=== PATIENT | female | born 1935 | race Caucasian/White ===

== ENCOUNTER 2018-05-21 15:19 | Inpatient (IN) | payer MEDICARE, BC ==
[~2018-05-21] VITALS: Ht 154.9 cm; Wt 88.5 kg
--- NOTE | 2018-05-21 15:31 | NUR ---
BIB DAUGHTER FROM URGENT CARE, C/O ABD PAIN, LAST BM TODAY, DISTENDED, -DIARRHEA. "MY STOMACH IS SO TIGHT THAT I CAN'T BREATH.", TO ER BED 4, HOOKED TO MONITOR, CHANGED TO GOWN, AWAITING MD ZAVALA
--- NOTE | 2018-05-21 15:38 | NUR ---
DR ZALDIVAR AT BEDSIDE
[2018-05-21 16:38] LABS: BASOPHILS % (AUTO) 0.7 % (0.0-2.0); EOSINOPHILS % (AUTO) 0.8 % (0.0-6.0); HEMATOCRIT 22 % (33-45); LYMPHOCYTES # (AUTO) 0.9 /CMM (0.8-4.8); MEAN CORPUSCULAR HGB CONC 29 g/dl (31.0-36.0); MEAN CORPUSCULAR VOLUME 84 fL (82-100); MONOCYTES # (AUTO) 0.4 /CMM (0.1-1.30); MONOCYTES % (AUTO) 6.9 % (2.0-12.0); NEUTROPHILS # (AUTO) 4.8 /CMM (1.8-8.9); NEUTROPHILS % (AUTO) 77.6 % (43.0-81.0); PLATELET COUNT (AUTO) 224 /CMM (150-450); RED BLOOD CELL COUNT(AUTO) 2.63 MIL/uL (4.0-5.2); WHITE BLOOD COUNT (AUTO) 6.2 K/uL (4.3-11.0)
[2018-05-21 16:46] LABS: HEMOGLOBIN 6.5 g/dL (11.5-14.8)
[2018-05-21 16:51] LABS: CALCIUM, SERUM 9.9 mg/dL (8.5-10.1); CARBON DIOXIDE 23 mmol/L (21-32); CHLORIDE 111 mmol/L (98-107); CREATININE 1.4 mg/dL (0.6-1.3); GLUCOSE 102 mg/dL (74-106); POTASSIUM 4.6 mmol/L (3.5-5.1); SODIUM SERUM 143 mmol/L (136-145); UREA NITROGEN, BLOOD 24 mg/dL (7-18)
--- NOTE | 2018-05-21 16:51 | NUR ---
BACL FROM CT ABDOMEN
[2018-05-21 16:57] LABS: ALANINE AMINOTRANSFERASE 17 U/L (12-78); ALBUMIN 3.2 g/dL (3.4-5.0); ALKALINE PHOSPHATASE 70 U/L (46-116); ASPARTATE AMINOTRANSFERASE 15 U/L (15-37); BILIRUBIN,DIRECT 0.1 mg/dL (0.0-0.2); BILIRUBIN,TOTAL 0.6 mg/dL (0.2-1.0); LIPASE 496 U/L (73-393)
[2018-05-21] MEDS ORDERED: FUROSEMIDE 40 MG/4 ML VIAL IV ONE (17:30)
[2018-05-21] MEDS ORDERED: FUROSEMIDE 40 MG/4 ML VIAL ONE (17:38)
[2018-05-21 17:39] LABS: APPEARANCE,URINE Slightly Cloudy (CLEAR); BILIRUBIN,URINE Negative (NEGATIVE); BLOOD, URINE Trace-lysed Ery/uL (NEGATIVE); COLOR,URINE Yellow (YELLOW); KETONES,URINE Negative (NEGATIVE); LEUKOCYTE ESTERASE ,URINE Negative (NEGATIVE); NITRITE, URINE Negative (NEGATIVE); PH,URINE 5.5 (5.0-8.0); PROTEIN,URINE >=300 mg/dl (NEGATIVE); UGLUCOSE Negative (NEGATIVE); UROBILINOGEN,URINE 0.2 EU/dL (0.2)
--- NOTE | 2018-05-21 17:59 | NUR ---
PAGED EPIC FOR PANEL
--- NOTE | 2018-05-21 18:00 | NUR ---
SPOKE TO NURSE CAR SALES REPRESENTATIVE FOR MIDLINE INSERTION
[2018-05-21 18:10] LABS: BACTERIA,URINE Few /HPF (None Seen); RBC,URINE 0-2 /HPF (0-2); WBC,URINE 0-2 /HPF (0-3)
[2018-05-21 18:11] LABS: SQUAMOUS EPITHELIAL CELL,UR Few /HPF (None Seen); URINE AMORPHOUS URATE Moderate /HPF (None Seen)
[2018-05-21 18:19] LABS: BAND % (MANUAL) 2 % (0.0-5.0); LYMPHOCYTES % (MANUAL) 13 % (16-48); MONOCYTES % (MANUAL) 4 % (0-11.0); NEUTROPHILS % (MANUAL) 81 (42-76)
--- NOTE | 2018-05-21 18:35 | NUR ---
PT IS GOING TO 115-2, LUISA PEREYRA IS THE NURSE.
--- NOTE | 2018-05-21 18:55 | NUR ---
PT SIGNED CONSENT FOR BLOOD TRANSFUSION.
[2018-05-21] MEDS ORDERED: HYDROCODONE/APAP 5/325MG 1 EACH TABLET PO PRN (19:00)
[2018-05-21] MEDS ORDERED: ACETAMINOPHEN 325 MG TABLET PO PRN (19:00)
[2018-05-21] MEDS ORDERED: MAG HYDROX/AL HYDROX/SIMETH 30 ML UDC PO PRN (19:00)
[2018-05-21] MEDS ORDERED: Z GUARD REMEDY 2 OZ OINT TP PRN (19:00)
[2018-05-21] MEDS ORDERED: ONDANSETRON HCL/PF 4 MG/2 ML VIAL IVP PRN (19:00)
[2018-05-21] MEDS ORDERED: MAGNESIUM HYDROXIDE 30 ML UDC PO PRN (19:00)
--- NOTE | 2018-05-21 19:36 | NUR ---
REPORT GIVEN TO ALEJANDRO MORAN OF TELE UNIT
--- NOTE | 2018-05-21 19:38 | NUR ---
REPORT GIVEN TO BELEN MORAN FOR TEA
--- NOTE | 2018-05-21 19:50 | NUR ---
JEREMIAS MID LINE RN, IS AT THE BEDSIDE FOR MIDLINE INSERTION.
--- NOTE | 2018-05-21 20:10 | NUR ---
MIDLINE RN FINISHED. LUE 18G MIDLINE INSERTED.
[2018-05-21 22:00] VITALS: BP 140/72
--- NOTE | 2018-05-21 22:00 | NUR ---
RN NOTES RECEIVED PATIENT ON Martita LOVELL/Martita/BERTHA FAMILY MEMBER AT THE BEDSIDE. PATIENT PLACED ON MOLD SANDER WITH HR OS 67. PATIENT IV LINE ON RIGHT FOREARM G22 IS PATIENT AND INTACT, LEFT UPPER ARM MIDLINE IS ALSO PATIENT AND INTACT. RECEIVED PATIENT WITH BLOOD TRANSFUSION STARTED ALREADY FROM ER. VITAL SIGNS ARE TAKEN , SKIN ASSESSMENT IS DONE. ALL SAFETY MEASURES ARE IMPLEMENTED, BED IN LOW, LOCKED POSITION, CALL LIGHT IN REACH. WILL CONTINUE TO MONITOR PATIENT CLOSELY.
[2018-05-21 22:15] VITALS: BP 140/62
[2018-05-21 22:45] VITALS: BP 142/74
[2018-05-21 23:15] VITALS: BP 160/88
[2018-05-22] VITALS: BP 148/62
--- NOTE | 2018-05-22 | NUR ---
RN NOTES BLOOD TRANSFUSION IS DONE WITHOUT ANY ALLERGIC REACTIONS . NO ACUTE DISTRESS , NO HIGH TEMPERATURE, RR ARE WNL. WILL CONTINUE TO MONITOR PATIENT CLOSELY.
[2018-05-22 04:00] VITALS: BP 118/75
--- NOTE | 2018-05-22 07:30 | NUR ---
RN NOTES RECEIVED PATIENT IN BED WITH BREATHING NORMAL, EVEN AND UNLABORED. NO SOB NOTED. NO ACUTE DISTRESS NOTED. ON 4L O2 VIA NC, TOLERATED WELL. TELE MONITOR REVEALS SR, HR=60. IV RFA 22G IS PATENT AND INTACT, TOBIN MIDLINE IS PATENT AND INTACT. KEPT CLEAN,DRY AND COMFORTABLE. ALL NEEDS ATTENDED. SAFETY MEASURE OBSERVED. CALL LIGHT WITH IN REACH. WILL CONT TO MONITOR.
[2018-05-22 08:00] VITALS: BP 128/52
[2018-05-22 08:37] LABS: CALCIUM, SERUM 9.9 mg/dL (8.5-10.1); CARBON DIOXIDE 22 mmol/L (21-32); CHLORIDE 107 mmol/L (98-107); CREATININE 1.4 mg/dL (0.6-1.3); GLUCOSE 88 mg/dL (74-106); MAGNESIUM 2.1 mg/dL (1.8-2.4); PHOSPHORUS 3.4 mg/dL (2.5-4.9); SODIUM SERUM 141 mmol/L (136-145); UREA NITROGEN, BLOOD 22 mg/dL (7-18)
[2018-05-22] MEDS ORDERED: FUROSEMIDE 40 MG/4 ML VIAL IV SCH (09:00)
[2018-05-22 09:03] LABS: CHOLESTEROL 114 mg/dL (<200); HDL CHOLESTEROL 47 mg/dL (40-60); LDL 52 mg/dL (0-99); THYROID STIMULATING HORMONE 3.977 uIU/mL (0.358-3.74); TRIGLYCERIDES 147 mg/dL (30-150)
[2018-05-22] MEDS: FUROSEMIDE 40 MG/4 ML VIAL IV SCH ×2 (09:36→13:52)
[2018-05-22] MEDS ORDERED: DOCUSATE SODIUM 100 MG CAPSULE PO SCH (10:30)
[2018-05-22 10:34] LABS: BASOPHILS # (AUTO) 0.1 /CMM (0.0-0.2); BASOPHILS % (AUTO) 0.9 % (0.0-2.0); EOSINOPHILS % (AUTO) 1.8 % (0.0-6.0); HEMATOCRIT 27 % (33-45); LYMPHOCYTES # (AUTO) 0.8 /CMM (0.8-4.8); LYMPHOCYTES % (AUTO) 11.7 % (20.0-44.0); MEAN CORPUSCULAR HGB CONC 31 g/dl (31.0-36.0); MEAN CORPUSCULAR VOLUME 82 fL (82-100); MONOCYTES # (AUTO) 0.4 /CMM (0.1-1.30); MONOCYTES % (AUTO) 6.3 % (2.0-12.0); NEUTROPHILS # (AUTO) 5.2 /CMM (1.8-8.9); NEUTROPHILS % (AUTO) 79.3 % (43.0-81.0); PLATELET COUNT (AUTO) 250 /CMM (150-450); RED BLOOD CELL COUNT(AUTO) 3.36 MIL/uL (4.0-5.2); WHITE BLOOD COUNT (AUTO) 6.5 K/uL (4.3-11.0)
[2018-05-22 10:36] LABS: HEMOGLOBIN 8.5 g/dL (11.5-14.8)
[2018-05-22 10:41] LABS: CALCIUM, SERUM 10.2 mg/dL (8.5-10.1); CARBON DIOXIDE 25 mmol/L (21-32); CHLORIDE 106 mmol/L (98-107); CREATININE 1.5 mg/dL (0.6-1.3); GLUCOSE 128 mg/dL (74-106); POTASSIUM 3.8 mmol/L (3.5-5.1); SODIUM SERUM 143 mmol/L (136-145); UREA NITROGEN, BLOOD 22 mg/dL (7-18)
[2018-05-22 10:48] LABS: ALANINE AMINOTRANSFERASE 17 U/L (12-78); ALBUMIN 3.4 g/dL (3.4-5.0); ALKALINE PHOSPHATASE 77 U/L (46-116); ASPARTATE AMINOTRANSFERASE 16 U/L (15-37); BILIRUBIN,TOTAL 1.1 mg/dL (0.2-1.0); TOTAL PROTEIN, SERUM 7.5 g/dL (6.4-8.2)
[2018-05-22] MEDS ORDERED: ASPI-1152 PO (11:03)
[2018-05-22] MEDS ORDERED: AMLO5TAB9 PO (11:03)
[2018-05-22] MEDS ORDERED: DEXT15DR6 EACHEYE (11:03)
[2018-05-22] MEDS ORDERED: TRAZ-214 PO (11:04)
[2018-05-22] MEDS ORDERED: AZIT500T PO (11:04)
[2018-05-22] MEDS ORDERED: RIVA10TA PO (11:04)
[2018-05-22] MEDS ORDERED: POLY17PO29 PO (11:04)
[2018-05-22] MEDS ORDERED: MELA1TAB15 PO (11:04)
[2018-05-22] MEDS ORDERED: METO25TA6 PO (11:04)
[2018-05-22] MEDS ORDERED: CYAN100020 SL (11:04)
[2018-05-22] MEDS ORDERED: GABA-534 PO (11:04)
[2018-05-22] MEDS ORDERED: DONE10TA44 PO (11:04)
[2018-05-22] MEDS ORDERED: FURO20TA4 PO (11:04)
[2018-05-22] MEDS ORDERED: PROP15DR EACHEYE (11:04)
[2018-05-22] MEDS ORDERED: ROSU40TA PO (11:04)
[2018-05-22] MEDS ORDERED: CALC625T PO (11:04)
[2018-05-22] MEDS ORDERED: LEVO100T9 PO (11:04)
[2018-05-22] MEDS ORDERED: MEMA5TAB15 PO ×2 (11:04)
[2018-05-22] MEDS ORDERED: CHOL200026 PO (11:04)
[2018-05-22] MEDS ORDERED: [UNRECOGNIZED DRUG - OTHER] EACHEYE (11:04)
[2018-05-22] MEDS ORDERED: CITA20TA16 PO (11:04)
[2018-05-22 11:21] LABS: THYROID STIMULATING HORMONE 4.478 uIU/mL (0.358-3.74)
[2018-05-22 12:00] VITALS: BP 148/62
[2018-05-22 16:00] VITALS: BP 124/51
--- NOTE | 2018-05-22 19:09 | NUR ---
RN NOTES PATIENT ENDORSED TO NEXT SHIFT IN STABLE CONDITION FOR CONTINUITY OF CARE. WILL CONT TO MONITOR.
[2018-05-22 20:00] VITALS: BP 125/55
--- NOTE | 2018-05-22 20:00 | NUR ---
RN NOTES RECEIVED PATIENT IN BED, A/A/OX3 WITH EPISODES OF FORGETFULNESS .PATIENT IV LINE ON RIGHT FOREARM G22 IS PATIENT AND INTACT, LEFT UPPER ARM MIDLINE IS ALSO PATIENT AND INTACT. NO COMP. OF PAIN OR SOB. NO ACUTE DISTRESS NOTED AT THIS TIME. ALL SAFETY MEASURES ARE IMPLEMENTED, BED IN LOW, LOCKED POSITION, CALL LIGHT IN REACH. WILL CONTINUE TO MONITOR PATIENT CLOSELY.
[2018-05-22] MEDS: ZOLPIDEM TARTRATE 5 MG TABLET PO PRN (22:23)
[2018-05-23 04:00] VITALS: BP 143/52
[2018-05-23 07:23] LABS: BASOPHILS # (AUTO) 0.1 /CMM (0.0-0.2); EOSINOPHILS % (AUTO) 2.3 % (0.0-6.0); HEMATOCRIT 29 % (33-45); LYMPHOCYTES % (AUTO) 16.7 % (20.0-44.0); MEAN CORPUSCULAR HGB CONC 31 g/dl (31.0-36.0); MEAN CORPUSCULAR VOLUME 82 fL (82-100); MONOCYTES # (AUTO) 0.5 /CMM (0.1-1.30); MONOCYTES % (AUTO) 8.8 % (2.0-12.0); NEUTROPHILS # (AUTO) 4.4 /CMM (1.8-8.9); NEUTROPHILS % (AUTO) 71.2 % (43.0-81.0); PLATELET COUNT (AUTO) 219 /CMM (150-450); RED BLOOD CELL COUNT(AUTO) 3.55 MIL/uL (4.0-5.2); WHITE BLOOD COUNT (AUTO) 6.2 K/uL (4.3-11.0)
[2018-05-23 07:37] LABS: ALANINE AMINOTRANSFERASE 18 U/L (12-78); ALBUMIN 3.3 g/dL (3.4-5.0); ALKALINE PHOSPHATASE 74 U/L (46-116); ASPARTATE AMINOTRANSFERASE 31 U/L (15-37); BILIRUBIN,TOTAL 0.8 mg/dL (0.2-1.0); CALCIUM, SERUM 10.1 mg/dL (8.5-10.1); CARBON DIOXIDE 25 mmol/L (21-32); CHLORIDE 106 mmol/L (98-107); CREATININE 1.4 mg/dL (0.6-1.3); GLUCOSE 94 mg/dL (74-106); MAGNESIUM 2.3 mg/dL (1.8-2.4); PHOSPHORUS 3.8 mg/dL (2.5-4.9); POTASSIUM 3.8 mmol/L (3.5-5.1); SODIUM SERUM 143 mmol/L (136-145); TOTAL PROTEIN, SERUM 7.4 g/dL (6.4-8.2); UREA NITROGEN, BLOOD 24 mg/dL (7-18)
[2018-05-23 07:41] LABS: CREATINE KINASE, TOTAL 179 U/L (26-192)
[2018-05-23 08:00] VITALS: BP 140/52
--- NOTE | 2018-05-23 09:20 | NUR ---
RN AM SHIFT NOTE RECEIVED PATIENT RESPONSIVE TO TOUCH, NO VERBAL RESPONSE, VITALS WNL, NO DISTRESS A THIS TIME, IV TOBIN PATENT AND INTACT, G TUBE PATENT AND FLUSHING WELL, BED IN LOW POSITION WILL CONTINUE TO MONTITOR
[2018-05-23] MEDS: POTASSIUM CHLORIDE 20 MEQ TAB.PRT.SR PO SCH ×3 (10:10→12:07)
[2018-05-23] MEDS: FUROSEMIDE 40 MG/4 ML VIAL IV SCH ×3 (10:10→18:00)
[2018-05-23 12:00] VITALS: BP 134/64
[2018-05-23] MEDS: CITALOPRAM HYDROBROMIDE 20 MG TABLET PO SCH (12:07)
[2018-05-23] MEDS: MEMANTINE HCL 5 MG TABLET PO SCH (12:07)
[2018-05-23] MEDS: LEVOTHYROXINE SODIUM 100 MCG TABLET PO SCH (12:07)
[2018-05-23] MEDS: METOPROLOL TARTRATE 25 MG TABLET PO SCH ×2 (12:22→17:33)
[2018-05-23] MEDS: AMLODIPINE BESYLATE 5 MG TABLET PO SCH ×2 (12:24→21:24)
[2018-05-23] MEDS ORDERED: SOD FERRIC GLUC 125 MG in IV NS 0.9% 100 ML IV SCH (14:00)
[2018-05-23 16:00] VITALS: BP 138/54
[2018-05-23] MEDS ORDERED: MEMANTINE HCL 5 MG TABLET PO SCH (18:00)
[2018-05-23] MEDS ORDERED: GABAPENTIN 300 MG CAPSULE PO SCH (18:00)
--- NOTE | 2018-05-23 18:52 | NUR ---
RN CLOSING NOTE PATIENT IN BED, CONFUSED AT TIMES, LEFT UPPER MIDLINE PRESENT PATENT AND INTACT, BED IN LOW POSITION, OXYGEN ON VIA NASAL CANNULA TOLERATING WELL. NO REPORTS OF PAIN, FAMILY AT BEDSIDE IN THE AM AND AFTERNOON. CONTINUE TO MONITOR.
[2018-05-23 20:00] VITALS: BP 118/62
[2018-05-23] MEDS: ZOLPIDEM TARTRATE 5 MG TABLET PO PRN (21:38)
[2018-05-24 04:00] VITALS: BP 129/39
--- NOTE | 2018-05-24 07:00 | NUR ---
MS RN NOTES RECEIVED PT IN BED, ASLEEP. AROUSABLE. ON 4L NC. O2 SAT 100%. PT IS NOT IN DISTRESS. HOB ELEVATED 30 DEG. MIDLINE PATENT. NO S/SX OF INFECTION. BED IN LOCKED/LOWEST POSITION. CALL LIGHT IN REACH. WILL CONT TO MONITOR.
[2018-05-24 07:03] LABS: BASOPHILS # (AUTO) 0.1 /CMM (0.0-0.2); BASOPHILS % (AUTO) 0.9 % (0.0-2.0); EOSINOPHILS % (AUTO) 1.7 % (0.0-6.0); HEMATOCRIT 33 % (33-45); LYMPHOCYTES # (AUTO) 1.6 /CMM (0.8-4.8); LYMPHOCYTES % (AUTO) 20.1 % (20.0-44.0); MEAN CORPUSCULAR HGB CONC 30 g/dl (31.0-36.0); MEAN CORPUSCULAR VOLUME 83 fL (82-100); MONOCYTES # (AUTO) 0.8 /CMM (0.1-1.30); MONOCYTES % (AUTO) 10.6 % (2.0-12.0); NEUTROPHILS # (AUTO) 5.1 /CMM (1.8-8.9); NEUTROPHILS % (AUTO) 66.7 % (43.0-81.0); PLATELET COUNT (AUTO) 235 /CMM (150-450); RED BLOOD CELL COUNT(AUTO) 3.96 MIL/uL (4.0-5.2); WHITE BLOOD COUNT (AUTO) 7.7 K/uL (4.3-11.0)
[2018-05-24 08:00] VITALS: BP 125/67
[2018-05-24] MEDS: LEVOTHYROXINE SODIUM 100 MCG TABLET PO SCH (08:51)
[2018-05-24] MEDS: CITALOPRAM HYDROBROMIDE 20 MG TABLET PO SCH (08:51)
[2018-05-24] MEDS: METOPROLOL TARTRATE 25 MG TABLET PO SCH (08:52)
[2018-05-24] MEDS: MEMANTINE HCL 5 MG TABLET PO SCH (08:52)
[2018-05-24 09:59] LABS: ALANINE AMINOTRANSFERASE 21 U/L (12-78); ALBUMIN 3.4 g/dL (3.4-5.0); ALKALINE PHOSPHATASE 75 U/L (46-116); ASPARTATE AMINOTRANSFERASE 36 U/L (15-37); BILIRUBIN,TOTAL 0.6 mg/dL (0.2-1.0); CALCIUM, SERUM 10.2 mg/dL (8.5-10.1); CARBON DIOXIDE 24 mmol/L (21-32); CHLORIDE 104 mmol/L (98-107); CREATININE 2.3 mg/dL (0.6-1.3); GLUCOSE 85 mg/dL (74-106); MAGNESIUM 2.4 mg/dL (1.8-2.4); PHOSPHORUS 5.2 mg/dL (2.5-4.9); POTASSIUM 4.7 mmol/L (3.5-5.1); SODIUM SERUM 141 mmol/L (136-145); TOTAL PROTEIN, SERUM 7.7 g/dL (6.4-8.2); UREA NITROGEN, BLOOD 40 mg/dL (7-18)
--- NOTE | 2018-05-24 10:45 | NUR ---
MS RN NOTES PER BALJIT GARCIA TO TITRATE O2 DOWN TO SEE IF PT TOLERATES. PT CURRENTLY ON 2L NC O2 94%. WILL CONT TO MONITOR.
[2018-05-24] MEDS ORDERED: FUROSEMIDE 40 MG TABLET PO SCH (11:00)
[2018-05-24] MEDS ORDERED: FERR325T23 PO (11:07)
[2018-05-24] MEDS ORDERED: FURO-144 PO (11:07)
[2018-05-24 11:13] LABS: *SPE A/G RATIO 0.8 (0.7-1.7); *SPE ALBUMIN 3.3 g/dL (2.9-4.4); *SPE ALPHA-1-GLOBULIN 0.3 g/dL (0.0-0.4); *SPE ALPHA-2-GLOBULIN 1.3 g/dL (0.4-1.0); *SPE BETA GLOBULIN 1.2 g/dL (0.7-1.3); *SPE GLOBULIN, TOTAL 3.9 g/dL (2.2-3.9); *SPE M-SPIKE Not Observed g/dL (Not Observed); *SPEGAMMA GLOBULIN 1.1 g/dL (0.4-1.8)
[2018-05-24] MEDS ORDERED: PNEUMOCOCCAL 23-VAL P-SAC VAC 0.5 ML VIAL SQ ONE (11:30)
[2018-05-24 12:00] VITALS: BP 125/67
--- NOTE | 2018-05-24 12:12 | NUR ---
MS RN NOTES DISCHARGE INSTRUCTIONS GIVEN TO PT/ MIDLINE REMOVED/ PRESCRIPTION GIVEN. PT'S SKIN INTACT/NO WOUND PICS TAKEN. PNEUMO VACCINE ADMINISTERED. BEING DRIVEN HOME BY [id number].
[2018-05-24 13:09] LABS: PTH, INTACT 128 pg/mL (15-65)
== END 2018-05-24 12:30 | disposition home or self-care (01) | DRG 291 ==
LOC: ER 15:24 → TELE1 19:07 → MEDSG1 05-22 08:36
PROVIDERS: ADMIT Student in an Organized Health Care Education/Training Program; ATTEND Student in an Organized Health Care Education/Training Program
PROC: 05H633Z Insertion of Infusion Device into Left Subclavian Vein, Percutaneous Approach (ICD-10-PCS; principal; 2018-05-21)
PROC: B547ZZA Ultrasonography of Left Subclavian Vein, Guidance (ICD-10-PCS; 2018-05-21)
PROC: 30233N1 Transfusion of Nonautologous Red Blood Cells into Peripheral Vein, Percutaneous Approach (ICD-10-PCS; 2018-05-21)
DX: I13.0 Hypertensive heart and chronic kidney disease with heart failure and stage 1 through stage 4 chronic kidney disease, or unspecified chronic kidney disease (principal); N17.0 Acute kidney failure with tubular necrosis; I50.33 Acute on chronic diastolic (congestive) heart failure; E44.1 Mild protein-calorie malnutrition; I11.0 Hypertensive heart disease with heart failure; F03.90 Unspecified dementia, unspecified severity, without behavioral disturbance, psychotic disturbance, mood disturbance, and anxiety; I27.20 Pulmonary hypertension, unspecified; N18.9 Chronic kidney disease, unspecified; Z95.1 Presence of aortocoronary bypass graft; I25.10 Atherosclerotic heart disease of native coronary artery without angina pectoris; Z88.0 Allergy status to penicillin; G47.00 Insomnia, unspecified; Z95.3 Presence of xenogenic heart valve; K59.00 Constipation, unspecified; E66.01 Morbid (severe) obesity due to excess calories; Z68.36 Body mass index [BMI] 36.0-36.9, adult; G47.33 Obstructive sleep apnea (adult) (pediatric); I34.0 Nonrheumatic mitral (valve) insufficiency; D50.9 Iron deficiency anemia, unspecified; R00.1 Bradycardia, unspecified; Z79.899 Other long term (current) drug therapy
CPT/HCPCS: 36415; 36569; 71045-TC; 76770-TC; 80048-TC; 80053-TC; 80061-TC; 80076-TC; 81000-TC; 82550-TC; 82728-TC; 83540-TC; 83690-TC; 83735-TC; 83880; 83970; 84100-TC; 84155; 84165; 84439-TC; 84443-TC; 84484-TC; 85025-TC; 85730-TC; 86850-TC; 86921-TC; 87081-TC; 90732; 93307-TC; 94799-TC; G0378; J1940; J2916; J7030; J7040; P9016-BL

== ENCOUNTER 2019-06-06 10:00 | Outpatient (CLI) | payer MEDICARE, BC ==
[~2019-06-06 10:00] MED LIST: AMLO5TAB9 PO; ASPI-1152 PO; CALC625T PO; CHOL200026 PO; CITA20TA16 PO; CYAN100020 SL; DEXT15DR6 EACHEYE; DONE10TA44 PO; FERR325T23 PO; FURO-144 PO; GABA-534 PO; LEVO100T9 PO; MELA1TAB15 PO; MEMA5TAB42 PO; METO25TA6 PO; POLY17PO29 PO; PROP15DR EACHEYE; ROSU40TA PO; TRAZ-257 PO; [UNRECOGNIZED DRUG - OTHER] EACHEYE
== END 2019-06-06 23:59 | disposition home or self-care (01) ==
LOC: WOU 10:00
PROVIDERS: ATTEND Podiatrist Foot & Ankle Surgery
DX: L03.032 Cellulitis of left toe (principal); E11.42 Type 2 diabetes mellitus with diabetic polyneuropathy; M79.672 Pain in left foot; Z87.891 Personal history of nicotine dependence; I25.10 Atherosclerotic heart disease of native coronary artery without angina pectoris; Z95.1 Presence of aortocoronary bypass graft; Z96.649 Presence of unspecified artificial hip joint
CPT/HCPCS: G0463

== ENCOUNTER 2019-07-04 11:05 | Outpatient (CLI) | payer MEDICARE, BC | END 2019-07-04 23:59 | disposition home or self-care (01) | LOC: WOU 11:05 | PROVIDERS: ATTEND Podiatrist Foot & Ankle Surgery | DX: L03.032 Cellulitis of left toe (principal); L90.5 Scar conditions and fibrosis of skin; E11.42 Type 2 diabetes mellitus with diabetic polyneuropathy; E11.51 Type 2 diabetes mellitus with diabetic peripheral angiopathy without gangrene; F17.200 Nicotine dependence, unspecified, uncomplicated | CPT/HCPCS: G0463 ==

== ENCOUNTER 2019-07-30 13:20 | Outpatient (CLI) | payer MEDICARE, BC | END 2019-07-30 23:59 | disposition home or self-care (01) | LOC: WOU 13:20 | PROVIDERS: ATTEND Podiatrist Foot & Ankle Surgery | DX: B35.1 Tinea unguium (principal); L60.2 Onychogryphosis; E11.42 Type 2 diabetes mellitus with diabetic polyneuropathy; E11.51 Type 2 diabetes mellitus with diabetic peripheral angiopathy without gangrene; M79.672 Pain in left foot; M79.671 Pain in right foot; F17.200 Nicotine dependence, unspecified, uncomplicated; Z91.19 Patient's noncompliance with other medical treatment and regimen | CPT/HCPCS: G0463 ==

== ENCOUNTER 2019-09-26 13:25 | Outpatient (CLI) | payer MEDICARE, BC | END 2019-09-26 23:59 | disposition home or self-care (01) | LOC: WOU 13:25 | PROVIDERS: ATTEND Podiatrist Foot & Ankle Surgery | DX: E11.42 Type 2 diabetes mellitus with diabetic polyneuropathy (principal); I73.9 Peripheral vascular disease, unspecified; M79.672 Pain in left foot; M79.675 Pain in left toe(s); M79.674 Pain in right toe(s); Z79.01 Long term (current) use of anticoagulants; Z87.891 Personal history of nicotine dependence | CPT/HCPCS: G0463 ==

== ENCOUNTER 2019-12-19 14:15 | Outpatient (CLI) | payer MEDICARE, BC ==
[~2019-12-19 14:15] MED LIST changes: -ASPI-1152 PO; +ASPI-1420 PO
== END 2019-12-19 23:59 | disposition home or self-care (01) ==
LOC: WOU 14:15
PROVIDERS: ATTEND Podiatrist Foot & Ankle Surgery
DX: Z09 Encounter for follow-up examination after completed treatment for conditions other than malignant neoplasm (principal); Z86.31 Personal history of diabetic foot ulcer; E11.42 Type 2 diabetes mellitus with diabetic polyneuropathy; E11.51 Type 2 diabetes mellitus with diabetic peripheral angiopathy without gangrene; M79.675 Pain in left toe(s); M79.674 Pain in right toe(s); B35.1 Tinea unguium; F17.200 Nicotine dependence, unspecified, uncomplicated
CPT/HCPCS: G0463

== ENCOUNTER 2020-03-29 18:00 | Emergency (ER) | payer MEDICARE, BC ==
[~2020-03-29] VITALS: Ht 154.9 cm; Wt 89.8 kg
[~2020-03-29 18:00] MED LIST changes: +AMLO-212 PO; -AMLO5TAB9 PO
[2020-03-29] MEDS ORDERED: ZOLP5TAB8 PO (18:28)
[2020-03-29] MEDS ORDERED: ACID1TAB12 PO (18:28)
[2020-03-29] MEDS ORDERED: MAG30ORA PO (18:28)
[2020-03-29] MEDS ORDERED: HYDR-4077 PO (18:28)
[2020-03-29] MEDS ORDERED: PANT40TA2 PO (18:28)
[2020-03-29] MEDS ORDERED: LOSA50TA39 PO (18:28)
[2020-03-29] MEDS ORDERED: TERA2CAP4 PO (18:28)
[2020-03-29] MEDS ORDERED: DOCU-141 PO (18:28)
[2020-03-29] MEDS ORDERED: OXYM-12 (18:28)
[2020-03-29] MEDS ORDERED: CYAN100096 PO (18:28)
[2020-03-29] MEDS ORDERED: UMEC1BLS IH (18:28)
[2020-03-29] MEDS ORDERED: ONDA4TAB5 PO (18:28)
[2020-03-29] MEDS ORDERED: ALPR0.25 PO (18:28)
[2020-03-29] MEDS ORDERED: NITR0.4T48 SL (18:28)
[2020-03-29] MEDS ORDERED: ISOS30TA6 PO (18:28)
[2020-03-29] MEDS ORDERED: IPRA3AMP23 IH (18:28)
[2020-03-29] MEDS ORDERED: DIVA250T47 PO (18:28)
[2020-03-29] MEDS ORDERED: SENN-261 PO (18:28)
[2020-03-29] MEDS ORDERED: CARV3.122 PO (18:28)
--- NOTE | 2020-03-29 19:05 | NUR ---
US AT BEDSIDE.
[2020-03-29 19:47] LABS: BASOPHILS # (AUTO) 0.1 /CMM (0.0-0.2); BASOPHILS % (AUTO) 0.7 % (0.0-2.0); EOSINOPHILS % (AUTO) 0.9 % (0.0-6.0); HEMATOCRIT 45 % (33-45); HEMOGLOBIN 13.6 g/dL (11.5-14.8); LYMPHOCYTES % (AUTO) 24.5 % (20.0-44.0); MEAN CORPUSCULAR HGB CONC 31 g/dl (31.0-36.0); MEAN CORPUSCULAR VOLUME 99 fL (82-100); MONOCYTES # (AUTO) 0.7 /CMM (0.1-1.30); MONOCYTES % (AUTO) 8.2 % (2.0-12.0); NEUTROPHILS # (AUTO) 5.4 /CMM (1.8-8.9); NEUTROPHILS % (AUTO) 65.7 % (43.0-81.0); PLATELET COUNT (AUTO) 184 /CMM (150-450); WHITE BLOOD COUNT (AUTO) 8.2 K/uL (4.3-11.0)
--- NOTE | 2020-03-29 19:50 | NUR ---
PT BIBRA C/O EPIGASTRIC PAIN WHICH FEELS LIKE SHE IS GOING TO [facility]. RESP EVEN UNLABORED. PAIN IS NONRADIATING, INTERMITTENT, AND UNABLE TO IDENTIFY PRECIPITATING FACTORS. PT HAS HAD DIFFICULTY WITH BM SINCE DC FROM HOSPITAL. LAST COVID TESTED ON SUNDAY, NEGATIVE. SKIN WARM DRY BUT PT C/O COLD EXTREMITIES, CAP REFILL WNL.
[2020-03-29 19:58] LABS: CALCIUM, SERUM 11.6 mg/dL (8.5-10.1); CARBON DIOXIDE 18 mmol/L (21-32); CHLORIDE 106 mmol/L (98-107); CREATININE 1.4 mg/dL (0.6-1.3); GLUCOSE 103 mg/dL (74-106); POTASSIUM 4.4 mmol/L (3.5-5.1); SODIUM SERUM 140 mmol/L (136-145); UREA NITROGEN, BLOOD 26 mg/dL (7-18)
[2020-03-29 20:05] LABS: ALANINE AMINOTRANSFERASE 20 U/L (12-78); ALBUMIN 3.6 g/dL (3.4-5.0); ALKALINE PHOSPHATASE 115 U/L (46-116); ASPARTATE AMINOTRANSFERASE 21 U/L (15-37); BILIRUBIN,DIRECT 0.2 mg/dL (0.0-0.2); BILIRUBIN,TOTAL 0.4 mg/dL (0.2-1.0); LIPASE 254 U/L (73-393); TOTAL PROTEIN, SERUM 7.6 g/dL (6.4-8.2)
[2020-03-29 20:56] LABS: BILIRUBIN,URINE Negative (NEGATIVE); BLOOD, URINE Trace-lysed Ery/uL (NEGATIVE); COLOR,URINE YELLOW (YELLOW); LEUKOCYTE ESTERASE ,URINE Negative (NEGATIVE); NITRITE, URINE Negative (NEGATIVE); PROTEIN,URINE 100 mg/dl (NEGATIVE); UGLUCOSE Negative (NEGATIVE); UROBILINOGEN,URINE 0.2 EU/dL (0.2)
--- NOTE | 2020-03-29 20:59 | NUR ---
URINE OBTAINED BY IN AND OUT CATH DUE TO NO URINE PER DR ZALDIVAR
[2020-03-29] MEDS ORDERED: ONDANSETRON HCL/PF - ER 4 MG/2 ML VIAL IV ONE (21:00)
[2020-03-29] MEDS ORDERED: MORPHINE SULFATE INJ 2 MG/ML DISP.SYRIN IV ONE (21:00)
[2020-03-29] MEDS ORDERED: PANTOPRAZOLE 40 MG VIAL IV ONE (21:00)
[2020-03-29] MEDS ORDERED: PANTOPRAZOLE 40 MG VIAL ONE (21:20)
[2020-03-29] MEDS ORDERED: MORPHINE SULFATE INJ 2 MG/ML DISP.SYRIN ONE (21:20)
[2020-03-29] MEDS ORDERED: ONDANSETRON HCL/PF 4 MG/2 ML VIAL ONE (21:20)
[2020-03-29 21:49] LABS: BACTERIA,URINE Rare /HPF (None Seen); SQUAMOUS EPITHELIAL CELL,UR Few /HPF (None Seen); WBC,URINE NONE SEEN /HPF (0-3)
[2020-03-29 22:24] VITALS: BP 139/84
--- NOTE | 2020-03-29 22:25 | NUR ---
IV removed. Catheter intact and site benign. Pressure and 4x4 applied to site. No bleeding noted. AMBULATORY STEADY GAIT. Patient discharged to home in stable condition. Written and verbal after care instructions given. Patient verbalizes understanding of instruction. PT'S SON ABBE WILL PICK HER UP. PT ESCORTED TO WAITING ROOM.
== END 2020-03-29 22:28 | disposition home or self-care (01) ==
LOC: ER 18:03
DX: K44.9 Diaphragmatic hernia without obstruction or gangrene (principal); K59.00 Constipation, unspecified; G47.30 Sleep apnea, unspecified; G47.00 Insomnia, unspecified; F03.90 Unspecified dementia, unspecified severity, without behavioral disturbance, psychotic disturbance, mood disturbance, and anxiety; I25.10 Atherosclerotic heart disease of native coronary artery without angina pectoris; E78.5 Hyperlipidemia, unspecified; E03.9 Hypothyroidism, unspecified; I13.0 Hypertensive heart and chronic kidney disease with heart failure and stage 1 through stage 4 chronic kidney disease, or unspecified chronic kidney disease; E11.22 Type 2 diabetes mellitus with diabetic chronic kidney disease; N18.9 Chronic kidney disease, unspecified; Z95.5 Presence of coronary angioplasty implant and graft; Z95.1 Presence of aortocoronary bypass graft; Z98.890 Other specified postprocedural states; Z88.0 Allergy status to penicillin; Z88.8 Allergy status to other drugs, medicaments and biological substances; Z79.899 Other long term (current) drug therapy; Z79.82 Long term (current) use of aspirin
CPT/HCPCS: 36415; 71045; 74176; 76705; 80048; 80076; 81001; 83690; 84484; 85025; 93005; 96374; 96375; 99285; C9113; J2270; J2405 ×2

== ENCOUNTER 2022-03-25 20:36 | Emergency (ER) | payer MEDICARE, BC ==
[~2022-03-25] VITALS: Ht 154.9 cm; Wt 91.2 kg
[~2022-03-25 20:36] MED LIST changes: +ACID1TAB12 PO; +ALPR0.25 PO; -AMLO-212 PO; +CARV3.122 PO; -CITA20TA16 PO; -CYAN100020 SL; +CYAN100096 PO; -DEXT15DR6 EACHEYE; +DIVA250T47 PO; +DOCU-141 PO; -DONE10TA44 PO; -FERR325T23 PO; -FURO-144 PO; -GABA-534 PO; +HYDR-4077 PO; +IPRA3AMP23 IH; +ISOS30TA86 PO; +LOSA50TA39 PO; +MAG30ORA PO; -MELA1TAB15 PO; -MEMA5TAB42 PO; -METO25TA6 PO; +NITR0.4T48 SL; +ONDA4TAB5 PO; +OXYM-12; +PANT40TA2 PO; -POLY17PO29 PO; +SENN-261 PO; +TERA2CAP4 PO; -TRAZ-257 PO; +UMEC1BLS IH; +ZOLP5TAB8 PO; -[UNRECOGNIZED DRUG - OTHER] EACHEYE
[2022-03-25 21:16] VITALS: BP 175/96
--- NOTE | 2022-03-25 21:16 | NUR ---
PT BIBRA 102 [facility], C/O NO BM X 4 DAYS. PATIENT IS A/O X 3, RR EVEN AND UNLABORED, NO SOB NOTED. VSS. WILL CONTINUE TO MONITOR.
[2022-03-25] MEDS ORDERED: LACTULOSE 10 G/15 ML UDC (PYXIS) ONE (21:46)
[2022-03-25] MEDS ORDERED: KETOROLAC TROMETHAMINE 15 MG/ML VIAL ONE (21:46)
[2022-03-25] MEDS ORDERED: PANTOPRAZOLE 40 MG VIAL ONE (21:47)
[2022-03-25] MEDS ORDERED: MAG HYDROX/AL HYDROX/SIMETH 30 ML UDC ONE (21:47)
[2022-03-25] MEDS ORDERED: PANTOPRAZOLE 40 MG VIAL IV ONE (22:00)
[2022-03-25] MEDS ORDERED: KETOROLAC TROMETHAMINE INJ 30 MG/ML VIAL IV ONE (22:00)
[2022-03-25] MEDS ORDERED: MAG HYDROX/AL HYDROX/SIMETH 30 ML UDC PO ONE (22:00)
[2022-03-25] MEDS ORDERED: LACTULOSE 10 G/15 ML UDC (PYXIS) PO ONE (22:00)
--- NOTE | 2022-03-25 22:22 | NUR ---
IV LINE ESTABLISHED, RWRIST 24G
--- NOTE | 2022-03-25 23:58 | NUR ---
PT TAKEN TO CT SCAN VIA [facility]
[2022-03-26 00:02] LABS: CALCIUM, SERUM 10.6 mg/dL (8.5-10.1); CARBON DIOXIDE 26 mmol/L (21-32); CHLORIDE 106 mmol/L (98-107); GLUCOSE 154 mg/dL (74-106); POTASSIUM 4.7 mmol/L (3.5-5.1); SODIUM SERUM 142 mmol/L (136-145); UREA NITROGEN, BLOOD 36 mg/dL (7-18)
[2022-03-26 00:03] LABS: BASOPHILS % (AUTO) 0.4 % (0.0-2.0); EOSINOPHILS % (AUTO) 0.6 % (0.0-6.0); HEMATOCRIT 39 % (33-45); HEMOGLOBIN 11.9 g/dL (11.5-14.8); LYMPHOCYTES # (AUTO) 0.9 K/uL (0.8-4.8); LYMPHOCYTES % (AUTO) 8.8 % (20.0-44.0); MEAN CORPUSCULAR HGB CONC 31 g/dl (31.0-36.0); MEAN CORPUSCULAR VOLUME 91 fL (82-100); MONOCYTES # (AUTO) 0.5 K/uL (0.1-1.30); MONOCYTES % (AUTO) 4.3 % (2.0-12.0); NEUTROPHILS # (AUTO) 9.2 K/uL (1.8-8.9); NEUTROPHILS % (AUTO) 85.9 % (43.0-81.0); PLATELET COUNT (AUTO) 69 K/uL (150-450); RED BLOOD CELL COUNT(AUTO) 4.26 MIL/uL (4.0-5.2); WHITE BLOOD COUNT (AUTO) 10.7 K/uL (4.3-11.0)
--- NOTE | 2022-03-26 00:10 | NUR ---
[facility]
[2022-03-26 00:20] LABS: ALANINE AMINOTRANSFERASE 34 U/L (12-78); ALBUMIN 3.5 g/dL (3.4-5.0); ALKALINE PHOSPHATASE 124 U/L (46-116); ASPARTATE AMINOTRANSFERASE 58 U/L (15-37); BILIRUBIN,DIRECT 0.3 mg/dL (0.0-0.2); BILIRUBIN,TOTAL 0.5 mg/dL (0.2-1.0); LIPASE 143 U/L (73-393); TOTAL PROTEIN, SERUM 7.5 g/dL (6.4-8.2)
[2022-03-26 01:21] LABS: EOSINOPHILS % (MANUAL) 1 % (0-4); LYMPHOCYTES % (MANUAL) 11 % (16-48); MONOCYTES % (MANUAL) 7 % (0-11.0); NEUTROPHILS % (MANUAL) 81 (42-76)
[2022-03-26] MEDS ORDERED: DOCU240C PO (01:22)
--- NOTE | 2022-03-26 01:46 | NUR ---
CALLED [facility] TO SET UP TRANSPORTATION ETA IS [phone]
--- NOTE | 2022-03-26 03:09 | NUR ---
IV removed. Catheter intact and site benign. Pressure and 4x4 applied to site. No bleeding noted.
--- NOTE | 2022-03-26 03:09 | NUR ---
Patient discharged to home in stable condition. Written and verbal after care instructions given. Patient verbalizes understanding of instruction.
== END 2022-03-26 03:25 | disposition home or self-care (01) ==
LOC: ER 20:39
DX: R10.11 Right upper quadrant pain (principal); I10 Essential (primary) hypertension; E78.5 Hyperlipidemia, unspecified; Z88.0 Allergy status to penicillin; Z88.8 Allergy status to other drugs, medicaments and biological substances; Z79.899 Other long term (current) drug therapy
CPT/HCPCS: 99284; 74176; 96374; 96375; 85025; 80048; 83690; 80076; 85007; J7030; C9113; J1885; 36415

== ENCOUNTER 2022-09-14 21:15 | Inpatient (IN) | payer MEDICARE, BC ==
[~2022-09-14] VITALS: Ht 154.9 cm; Wt 85.3 kg
[~2022-09-14 21:15] MED LIST changes: +DOCU240C PO
--- NOTE | 2022-09-14 21:19 | NUR ---
ARACELY FROM [facility] FOR C/C OF N/V. PER STAFF. PT WAS BEING ASSISTED TO BED AND BECAME SUDDENLY WEAK, DIZZY AND PALE/DIAPHORETIC. -LOC. PT THEN BECAME SUDDENLY NAUSEOUS AND BECAME VOMITING NON BLOODY VOMITUS. PT STATES HER DIZZINESS HAS IMPROVED AT TRIAGE BUT STILL ENDORSES NAUSEA, DRY HEAVING AT TRIAGE. PT NORMOTENSIVE. ECG AFIB, UNKOWN IF NEW ONSET -BLOODTHINNER USE. AWAKE AND ALERT X3 RR EVEN AND UNLABORED V/S WNL
--- NOTE | 2022-09-14 21:20 | NUR ---
UPDATED MORGAN (DAUGHTER IN LAW) [phone]
--- NOTE | 2022-09-14 21:22 | NUR ---
ARACELY FROM [facility] FOR SUDDEN WEAKNESS/DIZZINESS WHILE ASSISTED TO BED, BECAME PALE AND DIAPHORETIC AND STARTED VOMITING. ONLY NAUSEOUS AT TRIAGE. PATIENT PLACED IN BED COMFORTABLY, VITALS CHECKED.
[2022-09-14] MEDS ORDERED: ONDANSETRON HCL/PF 4 MG/2 ML VIAL ONE (21:45)
[2022-09-14] MEDS ORDERED: ONDANSETRON HCL/PF - ER 4 MG/2 ML VIAL IV ONE (22:00)
--- NOTE | 2022-09-14 22:20 | NUR ---
22GA TO RIGHT FOREARM ESTABLISHED
--- NOTE | 2022-09-14 22:44 | NUR ---
IRRIGATION EQUIPMENT REMOVER AT BEDSIDE
--- NOTE | 2022-09-14 23:00 | NUR ---
PT UNABLE TO PROVIDE URINE SAMPLE AT THIS TIME. AWARE.
[2022-09-14 23:18] LABS: BASOPHILS # (AUTO) 0.1 K/uL (0.0-0.2); BASOPHILS % (AUTO) 0.5 % (0.0-2.0); EOSINOPHILS % (AUTO) 1.3 % (0.0-6.0); HEMATOCRIT 39 % (33-45); HEMOGLOBIN 11.9 g/dL (11.5-14.8); LYMPHOCYTES # (AUTO) 1.4 K/uL (0.8-4.8); LYMPHOCYTES % (AUTO) 12.9 % (20.0-44.0); MEAN CORPUSCULAR HGB CONC 31 g/dl (31.0-36.0); MEAN CORPUSCULAR VOLUME 85 fL (82-100); MONOCYTES # (AUTO) 0.6 K/uL (0.1-1.30); MONOCYTES % (AUTO) 5.8 % (2.0-12.0); NEUTROPHILS # (AUTO) 8.6 K/uL (1.8-8.9); NEUTROPHILS % (AUTO) 79.5 % (43.0-81.0); PLATELET COUNT (AUTO) 247 K/uL (150-450); RED BLOOD CELL COUNT(AUTO) 4.57 MIL/uL (4.0-5.2); WHITE BLOOD COUNT (AUTO) 10.9 K/uL (4.3-11.0)
--- NOTE | 2022-09-14 23:24 | NUR ---
SON/ABBE REYNOSO
[2022-09-14 23:41] LABS: ALANINE AMINOTRANSFERASE 23 U/L (12-78); ALBUMIN 3.4 g/dL (3.4-5.0); ALKALINE PHOSPHATASE 141 U/L (46-116); ASPARTATE AMINOTRANSFERASE 23 U/L (15-37); BILIRUBIN,DIRECT 0.1 mg/dL (0.0-0.2); BILIRUBIN,TOTAL 0.3 mg/dL (0.2-1.0); CALCIUM, SERUM 10.7 mg/dL (8.5-10.1); CARBON DIOXIDE 19 mmol/L (21-32); CHLORIDE 106 mmol/L (98-107); CREATININE 2.5 mg/dL (0.6-1.3); GLUCOSE 103 mg/dL (74-106); LIPASE 109 U/L (73-393); POTASSIUM 4.9 mmol/L (3.5-5.1); SODIUM SERUM 138 mmol/L (136-145); TOTAL PROTEIN, SERUM 7.6 g/dL (6.4-8.2); UREA NITROGEN, BLOOD 49 mg/dL (7-18)
--- NOTE | 2022-09-14 23:50 | NUR ---
PASTRY COOK AT BEDSIDE TO TRANSPORT PATIENT, PATIENT REFUSED
--- NOTE | 2022-09-14 23:51 | NUR ---
CROP GRAIN OR LIVESTOCK FARM MANAGER AT BEDSIDE, PATIENT REFUSED BLOOD DRAW
--- NOTE | 2022-09-14 23:53 | NUR ---
MD MADE AWARE OF PATIENT'S REFUSAL FOR CT AND BLOOD DRAW. MD AT BEDSIDE TO SPEAK WITH PATIENT.
--- NOTE | 2022-09-14 23:54 | NUR ---
SON/ABBE AT BEDSIDE
--- NOTE | 2022-09-15 00:16 | NUR ---
PT TRANSPORTED FOR CT AND XRAY ACCOMPANIED BY SULEMA AND TECH
--- NOTE | 2022-09-15 00:21 | NUR ---
MOVE SHEET SUBMITTEDD
--- NOTE | 2022-09-15 00:28 | NUR ---
PT BACK FROM CT
--- NOTE | 2022-09-15 00:40 | NUR ---
COVID & MRSA SWABS COLLECTED, SENT TO LAB
--- NOTE | 2022-09-15 01:00 | NUR ---
ROD MILL TENDER AT PT'S BEDSIDE
[2022-09-15] MEDS ORDERED: FUROSEMIDE 20 MG/2 ML VIAL IV ONE (01:30)
[2022-09-15] MEDS ORDERED: OLANZAPINE 10 MG VIAL IM ONE ×2 (01:30→01:38)
[2022-09-15] MEDS ORDERED: FUROSEMIDE 20 MG/2 ML VIAL ONE (01:38)
[2022-09-15] MEDS ORDERED: MAG HYDROX/AL HYDROX/SIMETH 30 ML UDC PO PRN ×2 (02:00)
[2022-09-15] MEDS ORDERED: MAGNESIUM HYDROXIDE 30 ML UDC PO PRN (02:00)
[2022-09-15] MEDS ORDERED: ZOLPIDEM TARTRATE 5 MG TABLET PO PRN ×2 (02:00)
[2022-09-15] MEDS ORDERED: ONDANSETRON HCL/PF 4 MG/2 ML VIAL IVP PRN (02:00)
[2022-09-15] MEDS ORDERED: ONDANSETRON HCL/PF - ER 4 MG/2 ML VIAL IV ONE (02:00)
[2022-09-15] MEDS ORDERED: ACETAMINOPHEN 325 MG TABLET PO PRN (02:00)
[2022-09-15] MEDS ORDERED: Z GUARD REMEDY 4 OZ OINT TP PRN (02:00)
--- NOTE | 2022-09-15 02:27 | NUR ---
NOTIFIED DR FABIAN GEN SURGEON VIA TEXT
[2022-09-15] MEDS ORDERED: HYDROMORPHONE INJ 2 MG/ML DISP.SYRIN IV PRN (02:30)
[2022-09-15] MEDS ORDERED: CEFEPIME 1 GM in IV D5W 50 ML IV ONE (02:30)
[2022-09-15] MEDS ORDERED: MORPHINE SULFATE INJ 2 MG/ML DISP.SYRIN IV ONE (02:30)
[2022-09-15] MEDS ORDERED: IV NS 0.9% 1,000 ML IV PRN (02:30)
[2022-09-15] MEDS ORDERED: VANCOMYCIN 1 GM in IV D5W 250 ML IV ONE (02:30)
--- NOTE | 2022-09-15 02:32 | NUR ---
NOTIFIED DR BARBY MCCARTHY VIA TEXT
[2022-09-15] MEDS ORDERED: CIPROFLOXACIN IV RTU 200 ML IV ONE (02:34)
[2022-09-15] MEDS: CIPROFLOXACIN IV RTU 400 MG in PREMIX 1 EA IV SCH ×2 (02:36→15:04)
--- NOTE | 2022-09-15 03:10 | NUR ---
PT GOING TO 104
--- NOTE | 2022-09-15 03:10 | NUR ---
REPORT GIVEN TO JAMAL MORAN FOR TEA
--- NOTE | 2022-09-15 03:20 | NUR ---
URINE COLLECTED, SENT TO LAB
--- NOTE | 2022-09-15 03:22 | NUR ---
SKIP LOADER AT BEDSIDE
[2022-09-15] MEDS ORDERED: CEFEPIME 1 GM VIAL ONE (03:27)
[2022-09-15] MEDS ORDERED: MORPHINE SULFATE INJ 4 MG/ML DISP.SYRIN ONE (03:27)
[2022-09-15] MEDS ORDERED: VANCOMYCIN 1 GM /D5W 250 ML PB IV ONE (03:28)
[2022-09-15 03:59] LABS: BILIRUBIN,URINE NEGATIVE (NEGATIVE); COLOR,URINE DARK YELLOW (YELLOW); LEUKOCYTE ESTERASE ,URINE 3+ (NEGATIVE); NITRITE, URINE NEGATIVE (NEGATIVE); PROTEIN,URINE TRACE mg/dl (NEGATIVE); UGLUCOSE NEGATIVE (NEGATIVE); UROBILINOGEN,URINE 0.2 EU/dL (0.2)
[2022-09-15 04:01] LABS: BACTERIA,URINE Rare /HPF (None Seen); SQUAMOUS EPITHELIAL CELL,UR Few /HPF (None Seen)
--- NOTE | 2022-09-15 04:10 | NUR ---
LATIC 2.4
--- NOTE | 2022-09-15 04:35 | NUR ---
ACID EXTRACTOR NOTE RECEIVED PT FROM ER, ARRIVED VIA [facility], PT ACCOMPANIED BY 2 ER PERSONNELS. PT ORIGINALLY FROM [facility]. PT IS AWAKE, ALERT, VERBALLY RESPONSIVE, ORIENTED TO SELF AND PLACE WITH PERIODS OF CONFUSION. PT ON 2LIT O2 VIA NC, WELL CURRY, NO ACUTE RESP DISTRESS, SLIGHT SOB ON EXERTION. VSS. PT DENIES CHEST PAIN, NO C/O PAIN AT THIS TIME. AFEBRILE. PIV ACCESS ON RFA #22G, PATENT, SECURED, DD CDI. SKIN ASSESSMENT DONE, SKIN INTACT, NOTED WITH DD ON RLE, PER PT, SHE HAD SURGERY 2 DAYS AGO D/T CARCINOMA, UNKNOWN WHAT SPECIFIC SURGERY, PT REFUSES TO REMOVE BANDAGE, UNABLE TO ASSESS. CALL LIGHT WITHIN EASY REACH, SAFETY PRECAUTION IMPLEMENTED, ORIENTED TO ROOM, CALL LIGHT, RETURN DEMONSTRATION DONE. WILL CONTINUE PLAN OF CARE.
[2022-09-15 04:59] VITALS: BP 108/60
[2022-09-15] MEDS ORDERED: POLYVINYL ALCOHOL 15 ML BOTTLE EACHEYE PRN (05:00)
[2022-09-15] MEDS ORDERED: METRONIDAZOLE 500MG/ NS 100ML 100 ML IV ONE (05:20)
[2022-09-15] MEDS: METRONIDAZOLE 500MG/ NS 100ML 500 MG in PREMIX 1 EA IV SCH ×3 (05:38→20:21)
[2022-09-15] MEDS ORDERED: Medication Not On Formulary EA (Ipratropium/Albuterol Sulfate (Duoneb 2.5-0.5 Mg/3 Ml So IH SCH (06:00)
--- NOTE | 2022-09-15 06:37 | NUR ---
RN NOTE ATTEMPTED TO CALL SULEMA MCADAMS FOR NM VERBAL CONSENT, NO ANSWER, LEFT A MESSAGE. AWAITING FOR CALL BACK. WILL COMMUNICATE TO AM SHIFT.
[2022-09-15 07:01] LABS: ALBUMIN 3.3 g/dL (3.4-5.0); BILIRUBIN,DIRECT 0.1 mg/dL (0.0-0.2); BILIRUBIN,TOTAL 0.3 mg/dL (0.2-1.0); TOTAL PROTEIN, SERUM 7.3 g/dL (6.4-8.2)
--- NOTE | 2022-09-15 07:09 | NUR ---
WOUND CARE CONSULT: PT PRESENTS WITH HEALED INCISION TO RT LOWER LEG (COBAN DRESSING WAS REMOVED) AND LEFT LOWER LEG ULCER (BANDAID WAS REMOVED), PRESENT ON ADMISSION. SOME RASH/DISCOLORATION NOTED TO GROIN FOLDS AND INNER BUTTOCKS, PRESENT ON ADMISSION. PT IS INCONTINENT. RECOMMENDATIONS MADE FOR SKIN PROTECTION. DISCUSSED WITH NURSING STAFF. DR HAINES TO BE CALLED THIS AM FOR DPM CONSULT. MD IN AGREEMENT WITH PLAN OF CARE.
--- NOTE | 2022-09-15 07:10 | NUR ---
RN NOTE SKIN ASSESSMENT DONE, REAL ESTATE DEVELOPER AT BEDSIDE.
[2022-09-15] MEDS: LEVOTHYROXINE SODIUM 100 MCG TABLET PO SCH (07:30)
[2022-09-15] MEDS: PANTOPRAZOLE 40 MG TABLET.DR PO SCH (07:30)
--- NOTE | 2022-09-15 07:30 | NUR ---
RN NOTE HAND OFF REPORT TO AM SHIFT NURSE FOR TEA.
[2022-09-15] MEDS: IPRATROPIUM NEB FS 0.5 MG/2.5 ML AMPUL.NEB IH SCH ×3 (07:35→19:28)
[2022-09-15] MEDS: ALBUTEROL FS 2.5 MG/0.5 ML VIAL.NEB NEB SCH ×3 (07:35→19:28)
--- NOTE | 2022-09-15 08:04 | NUR ---
RN OPENING NOTE RECEIVED PT AWAKE IN BED, ALERT AND ORIENTED X2 VERBALLY RESPONSIVE, WITH PERIODS OF CONFUSION. PT ON 3L O2 VIA NC, WELL CURRY, NO ACUTE RESP DISTRESS, PT DENIES PAIN OR DISCOMFORT AT THIS TIME, IV ACCESS ON RFA #22G, PATENT, SECURED, DD CDI. CALL LIGHT WITHIN EASY REACH, SAFETY PRECAUTION IMPLEMENTED. WILL CONTINUE PLAN OF CARE.
--- NOTE | 2022-09-15 08:28 | NUR ---
PATIENT REFUSED THE ECHOCARDIOGRAM STUDY. LUISA WALTERS WAS NOTIFIED.. WILL TRY AGAIN LATER.
[2022-09-15] MEDS: CARVEDILOL 3.125 MG TABLET PO SCH ×2 (08:59→21:01)
[2022-09-15] MEDS: hydrALAZINE HCL 50 MG TABLET PO SCH ×3 (08:59→17:00)
[2022-09-15] MEDS: ASPIRIN EC 81 MG TABLET.DR PO SCH (08:59)
[2022-09-15] MEDS: DOCUSATE SODIUM 100 MG CAPSULE PO SCH ×2 (08:59→17:56)
[2022-09-15] MEDS: CALCIUM POLYCARBOPHIL 625 MG TABLET PO SCH ×2 (09:00→17:56)
[2022-09-15] MEDS: SENNOSIDES 8.6 MG TABLET PO SCH (09:00)
[2022-09-15] MEDS: ISOSORBIDE MONONITRATE (30MG) 30 MG TAB.SR.24H PO SCH (09:00)
[2022-09-15] MEDS: DIVALPROEX SODIUM 250 MG TABLET.DR PO SCH ×2 (09:00→21:01)
[2022-09-15] MEDS: CYANOCOBALAMIN 500 MCG TABLET PO SCH (09:00)
[2022-09-15] MEDS: CHOLECALCIFEROL 1,000 UNIT TABLET (VIT D3) PO SCH (09:00)
[2022-09-15] MEDS: CLOTRIMAZOLE 1% 15 GM TUBE TP SCH ×2 (09:00→17:00)
[2022-09-15] MEDS: ACIDOPHILUS/BULGARICUS 1 EACH TAB.CHEW PO SCH ×2 (09:00→17:56)
--- NOTE | 2022-09-15 09:20 | NUR ---
RN NOTES SPOKE TO PT'S SON, MR. ABBE REYNOSO AND CONSENT WAS GIVEN FOR NUCLEAR MEDICINE AND MRCP PROCEDURE. WILL MONITOR.
[2022-09-15 09:27] VITALS: BP 90/44
[2022-09-15] MEDS: FUROSEMIDE 40 MG/4 ML VIAL IV SCH ×3 (09:30→17:30)
[2022-09-15] MEDS ORDERED: ALBUTEROL FS 2.5 MG/3 ML VIAL.NEB NEB PRN (10:00)
--- NOTE | 2022-09-15 10:55 | NUR ---
RN NOTES NOTIFIED DR. BLANC FOR BP 90/60, WITH ORDER TO HOLD LASIX. WILL MONITOR.
[2022-09-15 11:41] LABS: IRON, SERUM 38 ug/dl (50-175); TOTAL IRON BINDING CAPACITY 426 ug/dl (250-450)
[2022-09-15 12:22] VITALS: BP 80/60
--- NOTE | 2022-09-15 12:25 | NUR ---
RN NOTES BP RECHECKED 80/60, PT. A/OX2, WITH CONFUSION. NOTIFIED MIMI MATHEW NP VIA TEXT AND DR. JERNIGAN MADE AWARE AT PATIENT'S BEDSIDE. AWAITS ORDERS. WILL MONITOR.
[2022-09-15] MEDS: IV D5/ 0.9% NACL 1,000 ML IV PRN (12:42)
[2022-09-15 13:01] LABS: ABG BASE EXCESS -6.6 mmol/L; ABG OXYGEN SATURATION 97.3 % (92.0-98.5); ABG PCO2 39.5 mmHg (35.0-45.0); ABG PH 7.305 (7.350-7.450); ABG PO2 108.9 mmHg (75.0-100.0); AaDO2 44.1 mmHg; COHb 0.2 % (0.5-1.5); MetHb 0.1 % (0.0-1.5); SITE, ABG Right Radial
--- NOTE | 2022-09-15 14:35 | NUR ---
PATIENT CONFUSED. SHE COULD NOT STAY STILL, AND FOLLOWED INSTRUCTION. RN AND CHARGED NURSE (MINDY) HAVE BEEN NOTIFIED.
--- NOTE | 2022-09-15 16:00 | NUR ---
RN NOTES PATIENT ABG RESULT RELAYED TO DR. JERNIGAN WITH NO NEW ORDERS, ORDERED FOR NOCTURNAL BIPAP.
[2022-09-15] MEDS ORDERED: DONE10TA44 PO (16:10)
[2022-09-15] MEDS ORDERED: POLY15DR40 EACHEYE (16:10)
[2022-09-15] MEDS ORDERED: FURO-144 PO (16:10)
[2022-09-15] MEDS ORDERED: GABA-532 PO (16:10)
[2022-09-15] MEDS ORDERED: ALBU8.5H8 IH (16:10)
[2022-09-15] MEDS ORDERED: DULO30CA2 PO (16:10)
[2022-09-15] MEDS ORDERED: FURO-145 PO (16:10)
[2022-09-15] MEDS ORDERED: MEMA10TA PO (16:10)
[2022-09-15] MEDS ORDERED: VALS80TA2 PO (16:10)
[2022-09-15] MEDS ORDERED: ACET-2605 PO (16:10)
[2022-09-15] MEDS ORDERED: BUSP15TA3 PO (16:10)
[2022-09-15] MEDS ORDERED: DOCU-141 PO (16:10)
[2022-09-15] MEDS ORDERED: FLUT16SP16 (16:10)
[2022-09-15] MEDS ORDERED: EZET10TA16 PO (16:10)
[2022-09-15] MEDS ORDERED: CLOB15OI3 TP (16:10)
[2022-09-15] MEDS ORDERED: DICL100G34 TP (16:10)
[2022-09-15] MEDS ORDERED: OXYC5TAB3 PO (16:10)
[2022-09-15] MEDS ORDERED: KETO120S5 TP (16:10)
[2022-09-15] MEDS ORDERED: GUAI100S11 PO (16:10)
[2022-09-15] MEDS ORDERED: KETO15CR2 TP (16:10)
[2022-09-15] MEDS ORDERED: [UNRECOGNIZED DRUG - CODE] OP (16:10)
[2022-09-15] MEDS ORDERED: GUAI600T31 PO (16:10)
[2022-09-15] MEDS ORDERED: POLY17PO4 PO (16:10)
[2022-09-15 16:23] VITALS: BP 92/60
--- NOTE | 2022-09-15 19:30 | NUR ---
RN NOTES RECEIVED REPORT FROM MORNING RN. PATIENT IN BED FAMILY AT BEDSIDE ON OXYGEN INHALATION @ 2LPMVIA NASAL CANULA TOLERATING WELL SATING 92% NO SOB NOT ON RESPIRATORY DISTRESS BREATHING EVEN AND UNLABORED. WITH IV ACCESS AT RFA # 22 PATENT RUNNING D5NS @ 100CC/HR NO INFILTRATION NO PHLEBITIS NOTED. ALL SAFETY MEASURES IN PLACE, HOB ELEVATED. CALL LIGHT WITHIN R4EACH. WILL CLOSELY MONITOR THE PATIENT
--- NOTE | 2022-09-15 19:35 | NUR ---
RN CLOSING NOTE PATIENT IN BED, ALERT AND ORIENTED X2 VERBALLY RESPONSIVE, WITH PERIODS OF CONFUSION. PT ON 2L O2 VIA NC, WELL CURRY, NO ACUTE RESP DISTRESS, PT DENIES PAIN OR DISCOMFORT AT THIS TIME, IV ACCESS ON RFA #22G WITH D5NS AT 100ML/HR, PATENT, SECURED, DD CDI. NUCLEAR MEDICINE AND MRCP WAS NOT DONE TODAY PER CT PATIENT IS TOO CONFUSED TO DO THE PROCEDURE. MIMI MATHEW MADE AWARE WITH ORDER TO START ON CLEAR LIQUID AND TO BE ON NPO POST MIDNIGHT TONIGHT. CALL LIGHT WITHIN EASY REACH, SAFETY PRECAUTION IMPLEMENTED. WILL ENDORSED TO NEXT NURSE FOR TEA.
[2022-09-15 20:00] VITALS: BP 128/86
[2022-09-15] MEDS: TERAZOSIN HCL 1 MG CAPSULE PO SCH (22:00)
--- NOTE | 2022-09-15 23:14 | NUR ---
PT PLACED ON NOC BIPAP
[2022-09-16] VITALS: BP 139/72
--- NOTE | 2022-09-16 01:00 | NUR ---
RN NOTES PATIENT REMOVED HER BIPAP RT MADE AWARE. PATIENT IS CONFUSED AND SCREAMING. WILL CLOSELEY MONITOR THE PATIENT
[2022-09-16] MEDS: IPRATROPIUM NEB FS 0.5 MG/2.5 ML AMPUL.NEB IH SCH ×4 (01:18→19:39)
[2022-09-16] MEDS: ALBUTEROL FS 2.5 MG/0.5 ML VIAL.NEB NEB SCH ×4 (01:18→19:39)
[2022-09-16] MEDS: CIPROFLOXACIN IV RTU 400 MG in PREMIX 1 EA IV SCH ×2 (03:24→14:24)
[2022-09-16 04:00] VITALS: BP 117/62
[2022-09-16] MEDS: METRONIDAZOLE 500MG/ NS 100ML 500 MG in PREMIX 1 EA IV SCH ×3 (04:36→20:40)
[2022-09-16] MEDS: IV D5/ 0.9% NACL 1,000 ML IV PRN ×2 (05:49→18:10)
--- NOTE | 2022-09-16 06:36 | NUR ---
RN NOTES PATIENT REMAINS STABLE YULISSA SIGNIFICANT CHANGES. PATIENT STILL WITH EPISODES OF CONFUSION. ALL DUE MEDS GIVEN [id number]. ALL SAFETY MEASURES IN PLACE HOB ELEVATED. BED ON LOWEST POSITION AND LOCKED. WILL ENDORSED TO MORNING SHIFT FOR TEA
--- NOTE | 2022-09-16 07:09 | NUR ---
RN OPENING NOTE RECEIVED PT AWAKE IN BED, ALERT AND ORIENTED X2 VERBALLY RESPONSIVE, WITH PERIODS OF CONFUSION, REFUSED FURNITURE REMOVALIST TO DRAW THE BLOOD PT ON 2L O2 VIA NC,KEEP REMOVING IT , NON COMPLIANT , NO ACUTE RESP DISTRESS, PT DENIES PAIN OR DISCOMFORT AT THIS TIME, IV ACCESS ON lFA #24G, . CALL LIGHT WITHIN EASY REACH, SAFETY PRECAUTION IMPLEMENTED. WILL CONTINUE PLAN OF CARE.
[2022-09-16] MEDS: PANTOPRAZOLE 40 MG TABLET.DR PO SCH (07:17)
[2022-09-16] MEDS: LEVOTHYROXINE SODIUM 100 MCG TABLET PO SCH (07:17)
[2022-09-16 08:00] VITALS: BP 112/73
[2022-09-16] MEDS: hydrALAZINE HCL 50 MG TABLET PO SCH ×3 (08:41→16:16)
[2022-09-16] MEDS: DOCUSATE SODIUM 100 MG CAPSULE PO SCH ×2 (08:52→16:16)
[2022-09-16] MEDS: CARVEDILOL 3.125 MG TABLET PO SCH ×2 (08:52→20:41)
[2022-09-16] MEDS: ASPIRIN EC 81 MG TABLET.DR PO SCH (08:52)
[2022-09-16] MEDS: ACIDOPHILUS/BULGARICUS 1 EACH TAB.CHEW PO SCH ×2 (08:53→16:15)
[2022-09-16] MEDS: ISOSORBIDE MONONITRATE (30MG) 30 MG TAB.SR.24H PO SCH (08:53)
[2022-09-16] MEDS: SENNOSIDES 8.6 MG TABLET PO SCH (08:53)
[2022-09-16] MEDS: CALCIUM POLYCARBOPHIL 625 MG TABLET PO SCH ×2 (08:53→16:19)
[2022-09-16] MEDS: DIVALPROEX SODIUM 250 MG TABLET.DR PO SCH ×2 (08:53→20:40)
[2022-09-16] MEDS: CYANOCOBALAMIN 500 MCG TABLET PO SCH (08:54)
[2022-09-16] MEDS: CHOLECALCIFEROL 1,000 UNIT TABLET (VIT D3) PO SCH (08:54)
[2022-09-16] MEDS: CLOTRIMAZOLE 1% 15 GM TUBE TP SCH ×2 (09:01→16:55)
[2022-09-16] MEDS: THERAHONEY GEL 1.5 OZ TUBE TP SCH (09:02)
--- NOTE | 2022-09-16 09:08 | NUR ---
RN NOTE PATIENT REFUSED TO TAKE ORAL MEDS
[2022-09-16 09:46] LABS: THYROID STIMULATING HORMONE 0.083 uIU/mL (0.358-3.74)
[2022-09-16 10:55] LABS: CALCIUM, SERUM 10.6 mg/dL (8.5-10.1); CARBON DIOXIDE 16 mmol/L (21-32); CHLORIDE 113 mmol/L (98-107); CREATININE 2.1 mg/dL (0.6-1.3); GLUCOSE 126 mg/dL (74-106); POTASSIUM 5.2 mmol/L (3.5-5.1); SODIUM SERUM 143 mmol/L (136-145); UREA NITROGEN, BLOOD 42 mg/dL (7-18)
[2022-09-16 12:00] VITALS: BP 109/70
[2022-09-16] MEDS: DIGOXIN INJ 0.5 MG/2 ML AMPUL IV SCH ×2 (12:50→18:05)
[2022-09-16] MEDS: ALPRAZOLAM 0.25 MG TABLET PO PRN ×2 (12:52→22:57)
[2022-09-16] MEDS: SODIUM POLYSTYRENE SULF. PWD 15 GM UDC PO SCH (15:25)
[2022-09-16 16:00] VITALS: BP 125/75
--- NOTE | 2022-09-16 18:43 | NUR ---
RN CLOSING NOTES PATIENT REMAINS STABLE NO SIGNIFICANT CHANGES. PATIENT STILL WITH EPISODES OF CONFUSION.ABLE TO AMBULATE .MID LINE INSERTED TO THE NOEMÍ 18 G , NS D5 RUNNING AT 100 ML/HR ALL DUE MEDS GIVEN ALL NEEDS WERE MET . ALL SAFETY MEASURES IN PLACE HOB ELEVATED. BED ON LOWEST POSITION AND LOCKED. WILL ENDORSED TO YARN WASHER FOR TEA
[2022-09-16 20:00] VITALS: BP 121/56
[2022-09-16] MEDS: TERAZOSIN HCL 1 MG CAPSULE PO SCH (22:57)
--- NOTE | 2022-09-16 23:56 | NUR ---
RN NOTES RECEIVED REPORT FROM MORNING RN. PATIENT IN BED FAMILY AT BEDSIDE ON OXYGEN INHALATION @ 2LPMVIA NASAL CANULA TOLERATING WELL SATING 92% NO SOB NOT ON RESPIRATORY DISTRESS BREATHING EVEN AND UNLABORED. WITH IV ACCESS AT TOBIN MIDLINE PATENT RUNNING D5NS @ 100CC/HR NO INFILTRATION NO PHLEBITIS NOTED. ALL SAFETY MEASURES IN PLACE, HOB ELEVATED. CALL LIGHT WITHIN R4EACH. WILL CLOSELY MONITOR THE PATIENT
[2022-09-17] VITALS: BP 119/75
[2022-09-17] MEDS: DIGOXIN INJ 0.5 MG/2 ML AMPUL IV SCH (00:12)
--- NOTE | 2022-09-17 01:25 | NUR ---
RN NOTES PATIENT STARTED TO BE AGITATED SCREAMING AND PULLED OUT HER IV LINE OXYGEN INHALATION HER TELE MONITOR. PATIENT REFUSED BIPAP OFFERED X3 STILL REFUSED. ANGELINE HARPER MADE AWARE WITH NEW ORDER FOR RESTRAINTS
[2022-09-17] MEDS: IPRATROPIUM NEB FS 0.5 MG/2.5 ML AMPUL.NEB IH SCH ×4 (01:54→19:48)
[2022-09-17] MEDS: ALBUTEROL FS 2.5 MG/0.5 ML VIAL.NEB NEB SCH ×4 (01:54→19:48)
[2022-09-17] MEDS: CIPROFLOXACIN IV RTU 400 MG in PREMIX 1 EA IV SCH ×2 (02:22→14:41)
[2022-09-17 04:00] VITALS: BP 130/60
[2022-09-17] MEDS: METRONIDAZOLE 500MG/ NS 100ML 500 MG in PREMIX 1 EA IV SCH ×3 (04:23→22:08)
[2022-09-17 06:00] LABS: BASOPHILS % (AUTO) 0.6 % (0.0-2.0); EOSINOPHILS % (AUTO) 1.3 % (0.0-6.0); HEMATOCRIT 32 % (33-45); HEMOGLOBIN 9.7 g/dL (11.5-14.8); LYMPHOCYTES # (AUTO) 1.4 K/uL (0.8-4.8); LYMPHOCYTES % (AUTO) 23.2 % (20.0-44.0); MEAN CORPUSCULAR HGB CONC 31 g/dl (31.0-36.0); MEAN CORPUSCULAR VOLUME 85 fL (82-100); MONOCYTES # (AUTO) 0.7 K/uL (0.1-1.30); MONOCYTES % (AUTO) 11.8 % (2.0-12.0); NEUTROPHILS # (AUTO) 3.8 K/uL (1.8-8.9); NEUTROPHILS % (AUTO) 63.1 % (43.0-81.0); PLATELET COUNT (AUTO) 158 K/uL (150-450); RED BLOOD CELL COUNT(AUTO) 3.72 MIL/uL (4.0-5.2); WHITE BLOOD COUNT (AUTO) 5.9 K/uL (4.3-11.0)
[2022-09-17] MEDS ORDERED: FUROSEMIDE 40 MG/4 ML VIAL IV SCH (06:30)
--- NOTE | 2022-09-17 06:30 | NUR ---
RN NOTES PATIENT STILL WITH EPISODES OF AGITATION AND CONFUSION TRYING TO REMOVED HER IV LINE AND OXYGEN INHALATION. IV ACCESS AT LFA # 24 PATENT RUNNING D5NS 100 CC/HR. ALL SAFETY MEASURES IN PLACE AT ALL TIMES BILATERAL SOFT WRIST RESTRAINTS IN PLACE CIRCULATION CHECKED Q2H, WILL ENDORSED TO MORNING SHIFT FOR TEA
[2022-09-17 06:37] LABS: ALANINE AMINOTRANSFERASE 19 U/L (12-78); ALBUMIN 2.9 g/dL (3.4-5.0); ALKALINE PHOSPHATASE 103 U/L (46-116); ASPARTATE AMINOTRANSFERASE 17 U/L (15-37); BILIRUBIN,DIRECT 0.1 mg/dL (0.0-0.2); BILIRUBIN,TOTAL 0.5 mg/dL (0.2-1.0); CALCIUM, SERUM 10.1 mg/dL (8.5-10.1); CARBON DIOXIDE 22 mmol/L (21-32); CHLORIDE 115 mmol/L (98-107); CREATININE 1.8 mg/dL (0.6-1.3); GLUCOSE 100 mg/dL (74-106); POTASSIUM 4.7 mmol/L (3.5-5.1); SODIUM SERUM 145 mmol/L (136-145); TOTAL PROTEIN, SERUM 6.6 g/dL (6.4-8.2); UREA NITROGEN, BLOOD 26 mg/dL (7-18)
--- NOTE | 2022-09-17 07:05 | NUR ---
RN OPENING NOTE RECEIVED PT AWAKE IN BED, ALERT AND ORIENTED X2 VERBALLY RESPONSIVE, WITH PERIODS OF CONFUSION, PT ON 2L O2 VIA NC,KEEP REMOVING IT , NON COMPLIANT ,WITH BILATERAL WRIST RESTRAINT,SKIN AND CIRCULATION CHECKED WITHIN NORMAL NO ACUTE RESP DISTRESS, PT DENIES PAIN OR DISCOMFORT AT THIS TIME, IV ACCESS ON LFA #24G, . CALL LIGHT WITHIN EASY REACH, SAFETY PRECAUTION IMPLEMENTED. WILL CONTINUE PLAN OF CARE.
[2022-09-17] MEDS: PANTOPRAZOLE 40 MG TABLET.DR PO SCH (07:48)
[2022-09-17] MEDS: LEVOTHYROXINE SODIUM 100 MCG TABLET PO SCH (07:48)
[2022-09-17 08:00] VITALS: BP 129/80
[2022-09-17] MEDS: VILANTEROL TR INH SCH (08:45)
[2022-09-17] MEDS: CLOTRIMAZOLE 1% 15 GM TUBE TP SCH ×2 (08:45→17:55)
[2022-09-17] MEDS: UMECLIDINIUM BRM INH SCH (08:45)
[2022-09-17] MEDS: CHOLECALCIFEROL 1,000 UNIT TABLET (VIT D3) PO SCH (08:45)
[2022-09-17] MEDS: HOME MED MISCELLANEOUS PO SCH (08:46)
[2022-09-17] MEDS: THERAHONEY GEL 1.5 OZ TUBE TP SCH (08:46)
[2022-09-17] MEDS: CALCIUM POLYCARBOPHIL 625 MG TABLET PO SCH ×2 (08:46→17:54)
[2022-09-17] MEDS: ISOSORBIDE MONONITRATE (30MG) 30 MG TAB.SR.24H PO SCH (08:47)
[2022-09-17] MEDS: ASPIRIN EC 81 MG TABLET.DR PO SCH (08:47)
[2022-09-17] MEDS: hydrALAZINE HCL 50 MG TABLET PO SCH ×3 (08:48→17:54)
[2022-09-17] MEDS: CYANOCOBALAMIN 500 MCG TABLET PO SCH (08:48)
[2022-09-17] MEDS: DIVALPROEX SODIUM 250 MG TABLET.DR PO SCH ×2 (08:48→22:08)
[2022-09-17] MEDS: ACIDOPHILUS/BULGARICUS 1 EACH TAB.CHEW PO SCH ×2 (08:48→17:53)
[2022-09-17] MEDS: CARVEDILOL 3.125 MG TABLET PO SCH ×2 (08:48→22:09)
[2022-09-17] MEDS: DOCUSATE SODIUM 100 MG CAPSULE PO SCH ×2 (09:00→17:53)
[2022-09-17] MEDS: SENNOSIDES 8.6 MG TABLET PO SCH (09:00)
[2022-09-17] MEDS: SODIUM POLYSTYRENE SULF. PWD 15 GM UDC PO SCH (11:24)
[2022-09-17 11:56] LABS: ABG BASE EXCESS -3.8 mmol/L; ABG PCO2 31.7 mmHg (35.0-45.0); ABG PH 7.417 (7.350-7.450); ABG PO2 75.4 mmHg (75.0-100.0); AaDO2 86.8 mmHg; COHb 0.7 % (0.5-1.5); MetHb 0.1 % (0.0-1.5); O2Hb 94.2 % (94.0-97.0); SITE, ABG Right Brachial; VENT MODE, BG NASAL CANNULA
[2022-09-17 12:00] VITALS: BP 92/51
[2022-09-17 16:00] VITALS: BP 122/65
--- NOTE | 2022-09-17 19:00 | NUR ---
CLOSING NOTE: ALERT AND ORIENTED X2. REORIENTED NEEDED. ON 02 2 LITERS NASAL CANNULA SATING AT 97%. TOOL ROOM ATTENDANT AF 86. LEFT FOREARM IV G24 SALINE LOCKED PATENT. RIGHT UPPER ARM NEW MIDLINE PATENT NO S/S OF COMPLICATIONS. PUREWICK ON WITH YELLOW URINE. BILATERAL SOFT WRIST RESTRAINTS ON, CIRCULATION WITHIN NORMAL, NO SKIN BREAKDOWN. KEPT CLEAN AND COMFORTABLE. HOB ELEVATED, BILATERAL HALF SIDE RAILS UP X2. BED IN LOW POSITION, LOCKED, EXIT ALARM ON. CALL LIGHT IN REACH.
--- NOTE | 2022-09-17 19:30 | NUR ---
PT AWAKE. ALERT AND ORIENTED X2. AGITATED. COMFORTED AND REORIENTED NEEDED. ON 02 VIA NC 2 LPM, SATING AT 98%. CNC SUPERVISOR IN PLACE SHOWING AF, HR AT 95. HAS LEFT FOREARM IV ACCESS, G24 AND RIGHT UPPER ARM MIDLINE G#18, SALINE LOCKED. PUREWICK ON WITH YELLOW URINE. BILATERAL SOFT WRIST RESTRAINTS ON, CHECKED FOR CIRCULATION, WITHIN NORMAL, NO SKIN BREAKDOWN. SAFETY MEASURES IN PLACE. HOB ELEVATED. CALL LIGHT WITHIN REACH. WILL CONTINUE PLAN OF CARE.
[2022-09-17 20:00] VITALS: BP 104/41
[2022-09-17] MEDS: TERAZOSIN HCL 1 MG CAPSULE PO SCH (22:09)
--- NOTE | 2022-09-17 22:30 | NUR ---
PT'S SON CALLED FOR UPDATES AND TO NOTIFY THAT THEY ARE REFUSING SURGERY (ERCP). NOTIFIED ATTENDING PHYSICIAN.
--- NOTE | 2022-09-17 23:00 | NUR ---
Pt refusing to be placed on BIPAP. Risk and benefits discussed with pt. No SOB/resp distress noted. RN aware.
[2022-09-18] VITALS: BP 128/69
[2022-09-18] MEDS: ALBUTEROL FS 2.5 MG/0.5 ML VIAL.NEB NEB SCH ×4 (01:45→19:30)
[2022-09-18] MEDS: IPRATROPIUM NEB FS 0.5 MG/2.5 ML AMPUL.NEB IH SCH ×4 (01:45→19:30)
[2022-09-18] MEDS: CIPROFLOXACIN IV RTU 400 MG in PREMIX 1 EA IV SCH ×2 (01:49→13:36)
[2022-09-18 04:00] VITALS: BP 157/83
[2022-09-18] MEDS: METRONIDAZOLE 500MG/ NS 100ML 500 MG in PREMIX 1 EA IV SCH (04:01)
--- NOTE | 2022-09-18 07:09 | NUR ---
PT AWAKE. ALERT AND ORIENTED X2. COMFORTED AND REORIENTED NEEDED TO PREVENT AGITATION. ON 02 VIA NC 2 LPM, SATING AT 98%. WIG COMBER IN PLACE SHOWING AF, HR AT 95. HAS LEFT FOREARM IV ACCESS, G24 AND RIGHT UPPER ARM MIDLINE G#18, SALINE LOCKED. PUREWICK ON WITH YELLOW URINE. BILATERAL SOFT WRIST RESTRAINTS ON, CHECKED FOR CIRCULATION, WITHIN NORMAL, NO SKIN BREAKDOWN. NEEDS ATTENDED. DUE MEDS GIVEN NEEDED AND ORDERED. SAFETY MEASURES MAINTAINED. HOB ELEVATED. CALL LIGHT WITHIN REACH. WILL ENDORSE TO NEXT NURSE ON DUTY FOR CONTINUITY OF CARE.
[2022-09-18 07:28] LABS: BASOPHILS % (AUTO) 0.5 % (0.0-2.0); EOSINOPHILS % (AUTO) 1.8 % (0.0-6.0); HEMATOCRIT 32 % (33-45); HEMOGLOBIN 10.1 g/dL (11.5-14.8); LYMPHOCYTES # (AUTO) 1.2 K/uL (0.8-4.8); LYMPHOCYTES % (AUTO) 16.7 % (20.0-44.0); MEAN CORPUSCULAR HGB CONC 32 g/dl (31.0-36.0); MEAN CORPUSCULAR VOLUME 84 fL (82-100); MONOCYTES # (AUTO) 0.6 K/uL (0.1-1.30); MONOCYTES % (AUTO) 7.5 % (2.0-12.0); NEUTROPHILS # (AUTO) 5.4 K/uL (1.8-8.9); NEUTROPHILS % (AUTO) 73.5 % (43.0-81.0); PLATELET COUNT (AUTO) 165 K/uL (150-450); RED BLOOD CELL COUNT(AUTO) 3.85 MIL/uL (4.0-5.2); WHITE BLOOD COUNT (AUTO) 7.4 K/uL (4.3-11.0)
--- NOTE | 2022-09-18 07:35 | NUR ---
RN NOTE GAVE REPORT TO NANCY RAMIREZ FOR CONTUITY OF CARE
[2022-09-18 07:43] LABS: CALCIUM, SERUM 10.6 mg/dL (8.5-10.1); CARBON DIOXIDE 21 mmol/L (21-32); CHLORIDE 112 mmol/L (98-107); CREATININE 1.8 mg/dL (0.6-1.3); GLUCOSE 109 mg/dL (74-106); SODIUM SERUM 146 mmol/L (136-145); UREA NITROGEN, BLOOD 25 mg/dL (7-18)
[2022-09-18 08:00] VITALS: BP 115/70
[2022-09-18] MEDS: HOME MED MISCELLANEOUS PO SCH (08:06)
[2022-09-18] MEDS: SODIUM POLYSTYRENE SULF. PWD 15 GM UDC PO SCH ×2 (08:07→08:39)
[2022-09-18] MEDS: CALCIUM POLYCARBOPHIL 625 MG TABLET PO SCH ×2 (08:07→16:27)
[2022-09-18] MEDS: hydrALAZINE HCL 50 MG TABLET PO SCH ×3 (08:14→16:28)
[2022-09-18] MEDS: DIVALPROEX SODIUM 250 MG TABLET.DR PO SCH ×2 (08:14→21:17)
[2022-09-18] MEDS: LEVOTHYROXINE SODIUM 100 MCG TABLET PO SCH (08:14)
[2022-09-18] MEDS: CHOLECALCIFEROL 1,000 UNIT TABLET (VIT D3) PO SCH (08:15)
[2022-09-18] MEDS: ISOSORBIDE MONONITRATE (30MG) 30 MG TAB.SR.24H PO SCH (08:15)
[2022-09-18] MEDS: PANTOPRAZOLE 40 MG TABLET.DR PO SCH (08:15)
[2022-09-18] MEDS: CARVEDILOL 3.125 MG TABLET PO SCH ×2 (08:15→21:16)
[2022-09-18] MEDS: ASPIRIN EC 81 MG TABLET.DR PO SCH (08:15)
[2022-09-18] MEDS: SENNOSIDES 8.6 MG TABLET PO SCH (08:16)
[2022-09-18] MEDS: DOCUSATE SODIUM 100 MG CAPSULE PO SCH ×2 (08:16→16:28)
[2022-09-18] MEDS: CYANOCOBALAMIN 500 MCG TABLET PO SCH (08:16)
[2022-09-18] MEDS: ACIDOPHILUS/BULGARICUS 1 EACH TAB.CHEW PO SCH ×2 (08:16→16:27)
[2022-09-18] MEDS: CLOTRIMAZOLE 1% 15 GM TUBE TP SCH ×2 (08:38→16:28)
[2022-09-18] MEDS: UMECLIDINIUM BRM INH SCH (08:38)
[2022-09-18] MEDS: THERAHONEY GEL 1.5 OZ TUBE TP SCH (08:38)
[2022-09-18] MEDS: VILANTEROL TR INH SCH (08:38)
--- NOTE | 2022-09-18 08:40 | NUR ---
JUNIOR ASSISTANT MANAGER NOTES Pt refused Kayexalate medication. Offered 3x but pt still refused. Explained risks and benefits.
--- NOTE | 2022-09-18 10:11 | NUR ---
JAMES NOTES ANGELINE Akins at [facility] with daughter in law Sho and Chele (son) on speaker phone and to discuss plan of care for pt. Discussed that the pt does not require surgery at this time for the cholelithiasis. also suggested that pt get seen by physical therapy and a neurologist. All parties in agreement.
--- NOTE | 2022-09-18 10:22 | NUR ---
RESEARCH CHEMICAL ENGINEER NOTES Lab called to relay critical lab value for Troponin 286. Tashi YOUTH ADVOCATE made aware with no new orders at this time.
[2022-09-18 12:00] VITALS: BP 104/59
[2022-09-18] MEDS: METRONIDAZOLE 500 MG TABLET PO SCH ×2 (13:22→21:17)
[2022-09-18 16:00] VITALS: BP 127/63
[2022-09-18] MEDS: ENSURE CLEAR 237 ML LIQUID (MIX BERRY) PO SCH (17:00)
[2022-09-18 17:41] LABS: CHOLESTEROL 123 mg/dL (<200); HDL CHOLESTEROL 56 mg/dL (40-60); LDL 48 mg/dL (0-99); TRIGLYCERIDES 95 mg/dL (30-150)
--- NOTE | 2022-09-18 18:31 | NUR ---
PRODUCTION CONTROL ANALYST CLOSING NOTES All due meds and tx given as ordered. Pt tolerated everything well. All needs attended to. Call light within reach. Will endorse to oncoming nurse.
--- NOTE | 2022-09-18 19:50 | NUR ---
TELE OPENING NOTES PT AWAKE. ALERT AND ORIENTED X2. WITH FAMILY AT THE BEDSIDE, COMFORTED AND REORIENTED NEEDED. ON 02 VIA NC 2 LPM, NO SIGNS OF RESPIRATORY DISTRESS. SEC REPORTING CONSULTANT IN PLACE SHOWING AFIB. HAS RIGHT UPPER ARM MIDLINE, LEFT FOREARM PERIPHERAL IV GAUGE 20. FLUSHED, PATENT AND INTACT. BILATERAL SOFT WRIST RESTRAINTS ON, CHECKED FOR CIRCULATION, WITHIN NORMAL, NO SKIN BREAKDOWN. HOB ELEVATED, SAFETY MEASURES IN PLACE, BED LOCKED ON LOWEST POSITION, CALL LIGHT WITHIN REACH. WILL CONTINUE TO MONITOR
[2022-09-18 20:00] VITALS: BP 100/62
--- NOTE | 2022-09-18 20:30 | NUR ---
RT NOTE PT REFUSING BIPAP AND HHN TX AFTER EXPLAINING RISKS AND BENEFITS. PT CURRENTLY ON 2 LPM NASAL CANNULA. NO SOB NOTED. RN NOTIFIED.
[2022-09-18] MEDS: TERAZOSIN HCL 1 MG CAPSULE PO SCH (22:33)
[2022-09-19] VITALS: BP 112/61
[2022-09-19] MEDS: ALBUTEROL FS 2.5 MG/0.5 ML VIAL.NEB NEB SCH ×4 (01:30→20:10)
[2022-09-19] MEDS: IPRATROPIUM NEB FS 0.5 MG/2.5 ML AMPUL.NEB IH SCH ×4 (01:30→20:10)
--- NOTE | 2022-09-19 02:16 | NUR ---
RT NOTE PT REFUSING HHN TX. NO SOB NOTED.
[2022-09-19 04:00] VITALS: BP 112/61
--- NOTE | 2022-09-19 04:40 | NUR ---
DIRECTOR OF CULTURE NOTES PT IN BED, SLEEPING. WHEN AWAKE, ALERT AND ORIENTED X2 WITH CONFUSION, COMFORTED AND REORIENTED NEEDED. ON 02 VIA NC 2 LPM, O2 SATURATION 95%. A FIB ON THE MONITOR. HAS RIGHT UPPER ARM MIDLINE. FLUSHED, PATENT AND INTACT. BILATERAL SOFT WRIST RESTRAINTS ON, REMOVED EVERY 2 HOURS AND CHECKED FOR CIRCULATION, NO SKIN BREAKDOWN NOTED. HOB ELEVATED, SAFETY MEASURES IN PLACE, BED LOCKED ON LOWEST POSITION, SR UP X3, CALL LIGHT AND BELONGINGS WITHIN REACH. ENDORSED TO LUISA ZAVALETA FOR TEA
[2022-09-19] MEDS: METRONIDAZOLE 500 MG TABLET PO SCH ×3 (05:10→20:58)
--- NOTE | 2022-09-19 05:38 | NUR ---
RT NOTE PT TOLERATED NASAL CANNULA @ 2 LPM WELL. PT AWAKE AND RESPONDING TO COMMANDS. NO SOB NOTED.
--- NOTE | 2022-09-19 06:34 | NUR ---
BOND UNDERWRITER CLOSING NOTES PATIENT REMAINS IN BED STABLE NO SIGNIFICANT CHANGES. PATIENT STILL WITH EPISODES OF CONFUSION. ABLE TO AMBULATE. ON TELEMONITOR READING CONTROLLED AFIB AT 86. IV ACCESS AT NOEMÍ MID LINE 18 G, NO IVF RUNNING AT THIS TIME, ALL DUE MEDS GIVEN ALL NEEDS WERE MET . ALL SAFETY MEASURES IN PLACE HOB ELEVATED. BED ON LOWEST POSITION AND LOCKED. WILL ENDORSED TO AM SHIFT NURSE FOR CONTINUITY OF CARE.
[2022-09-19 07:22] LABS: CALCIUM, SERUM 10.8 mg/dL (8.5-10.1); CARBON DIOXIDE 24 mmol/L (21-32); CHLORIDE 115 mmol/L (98-107); CREATININE 1.8 mg/dL (0.6-1.3); GLUCOSE 115 mg/dL (74-106); POTASSIUM 3.9 mmol/L (3.5-5.1); SODIUM SERUM 148 mmol/L (136-145); UREA NITROGEN, BLOOD 22 mg/dL (7-18)
--- NOTE | 2022-09-19 07:30 | NUR ---
DESKTOP MANAGER AM NOTES PT IN BED, VERY LETHARGIC, BARELY OPENS EYES, REORIENTED NEEDED. ON 02 VIA NC 2 LPM, NO SIGNS OF RESPIRATORY DISTRESS. O2 SAT 97%. RESPIRATION UNLABORED, AFIB HR 60 ON MONITOR. NO SIGNS OF CHEST PAIN/DISCOMFORT. TOBIN MIDLINE IN PLACE. FLUSHES WELL SITE CLEAR. BILATERAL SOFT WRIST RESTRAINTS ON, CHECKED FOR CIRCULATION, WITHIN NORMAL, NO SKIN BREAKDOWN. THEN EVERY 2 HOURS. HOB ELEVATED, SAFETY MEASURES IN PLACE, BED LOCKED ON LOWEST POSITION, CALL LIGHT WITHIN REACH. WILL CONTINUE TO MONITOR Addendum: 09/19/22 at 1939 by MINDY ALVES RN ADDENDUM: PER ANGULAR DEVELOPER PATIENT HAS BEEN REFUSING BIPAP FOR 3 DAYS
[2022-09-19 07:37] LABS: BASOPHILS % (AUTO) 0.6 % (0.0-2.0); EOSINOPHILS % (AUTO) 2.3 % (0.0-6.0); HEMATOCRIT 32 % (33-45); LYMPHOCYTES # (AUTO) 1.2 K/uL (0.8-4.8); LYMPHOCYTES % (AUTO) 18.2 % (20.0-44.0); MEAN CORPUSCULAR HGB CONC 31 g/dl (31.0-36.0); MEAN CORPUSCULAR VOLUME 85 fL (82-100); MONOCYTES # (AUTO) 0.5 K/uL (0.1-1.30); NEUTROPHILS # (AUTO) 4.6 K/uL (1.8-8.9); NEUTROPHILS % (AUTO) 70.9 % (43.0-81.0); PLATELET COUNT (AUTO) 181 K/uL (150-450); RED BLOOD CELL COUNT(AUTO) 3.77 MIL/uL (4.0-5.2); WHITE BLOOD COUNT (AUTO) 6.5 K/uL (4.3-11.0)
[2022-09-19 08:00] VITALS: BP 130/58
[2022-09-19] MEDS: CIPROFLOXACIN HCL 500 MG TABLET PO SCH (08:10)
[2022-09-19] MEDS: LEVOTHYROXINE SODIUM 100 MCG TABLET PO SCH (08:10)
[2022-09-19] MEDS: PANTOPRAZOLE 40 MG TABLET.DR PO SCH (08:10)
[2022-09-19] MEDS: ENSURE CLEAR 237 ML LIQUID (MIX BERRY) PO SCH ×3 (08:11→17:00)
[2022-09-19] MEDS: ALPRAZOLAM 0.25 MG TABLET PO PRN (08:11)
[2022-09-19] MEDS: SODIUM POLYSTYRENE SULF. PWD 15 GM UDC PO SCH (09:00)
--- NOTE | 2022-09-19 09:30 | NUR ---
RN NOTES DUE MEDS GIVEN
[2022-09-19] MEDS: DOCUSATE SODIUM 100 MG CAPSULE PO SCH ×2 (10:12→16:34)
[2022-09-19] MEDS: ACIDOPHILUS/BULGARICUS 1 EACH TAB.CHEW PO SCH ×2 (10:12→16:34)
[2022-09-19] MEDS: ASPIRIN EC 81 MG TABLET.DR PO SCH (10:12)
[2022-09-19] MEDS: DIVALPROEX SODIUM 250 MG TABLET.DR PO SCH ×2 (10:12→20:58)
[2022-09-19] MEDS: SENNOSIDES 8.6 MG TABLET PO SCH (10:13)
[2022-09-19] MEDS: CHOLECALCIFEROL 1,000 UNIT TABLET (VIT D3) PO SCH (10:13)
[2022-09-19] MEDS: hydrALAZINE HCL 50 MG TABLET PO SCH ×3 (10:14→16:33)
[2022-09-19] MEDS: CARVEDILOL 3.125 MG TABLET PO SCH ×2 (10:14→20:59)
[2022-09-19] MEDS: ISOSORBIDE MONONITRATE (30MG) 30 MG TAB.SR.24H PO SCH (10:15)
[2022-09-19] MEDS: CYANOCOBALAMIN 500 MCG TABLET PO SCH (10:15)
[2022-09-19] MEDS: THERAHONEY GEL 1.5 OZ TUBE TP SCH (10:16)
[2022-09-19] MEDS: CLOTRIMAZOLE 1% 15 GM TUBE TP SCH ×2 (10:16→16:35)
[2022-09-19] MEDS: VILANTEROL TR INH SCH (10:30)
[2022-09-19] MEDS: UMECLIDINIUM BRM INH SCH (10:30)
[2022-09-19] MEDS: CALCIUM POLYCARBOPHIL 625 MG TABLET PO SCH ×2 (10:31→16:34)
[2022-09-19] MEDS: CRESTOR 20 MG PO SCH (10:31)
[2022-09-19 12:00] VITALS: BP 102/46
--- NOTE | 2022-09-19 14:15 | NUR ---
RN NOTES DR. JERNIGAN AT BEDSIDE, ORDERED STAT ABG
[2022-09-19 14:35] LABS: ABG BASE EXCESS -0.7 mmol/L; ABG OXYGEN SATURATION 97.6 % (92.0-98.5); ABG PCO2 38.9 mmHg (35.0-45.0); ABG PH 7.405 (7.350-7.450); ABG PO2 109.9 mmHg (75.0-100.0); AaDO2 43.8 mmHg; COHb 0.3 % (0.5-1.5); MetHb 0.3 % (0.0-1.5); SITE, ABG Right Radial
--- NOTE | 2022-09-19 15:15 | NUR ---
RN RN NOTES PER DR. JERNIGAN NO NEED TO TRANSFER TO ICU. DC LUIS FERNANDO
[2022-09-19 16:00] VITALS: BP 106/46
--- NOTE | 2022-09-19 19:20 | NUR ---
ENVELOPE SEALER OPERATOR OPENING NOTES PT IN BED, DROWSY, BARELY OPENS EYES. REMOVED NC, NC WAS PUT BACK, PATIENT WAS REORIENTED. PATIENT ON 02 VIA NC 2 LPM, NO SIGNS OF RESPIRATORY DISTRESS. CONTROLLED AFIB ON MONITOR. NO SIGNS OF CHEST PAIN/DISCOMFORT. TOBIN MIDLINE IN PLACE. FLUSHES WELL, SITE CLEAR. BILATERAL SOFT WRIST RESTRAINTS ON, CHECKED FOR CIRCULATION, WITHIN NORMAL, NO SKIN BREAKDOWN. HOB ELEVATED, SAFETY MEASURES IN PLACE, BED LOCKED ON LOWEST POSITION, SR UP X2, CALL LIGHT WITHIN REACH. WILL CONTINUE TO MONITOR. Addendum: 09/20/22 at 0738 by FREDY RODRIGUEZ RN NOEMÍ MID LINE IN PLACE
--- NOTE | 2022-09-19 19:37 | NUR ---
METAL WELDER CLOSING NOTES PT IN BED, REMAINS VERY LETHARGIC, BARELY OPENS EYES, REORIENTED NEEDED. ON 02 VIA NC 2 LPM, NO SIGNS OF RESPIRATORY DISTRESS. O2 SAT 95%. RESPIRATION UNLABORED, AFIB HR 60 ON MONITOR. NO SIGNS OF CHEST PAIN/DISCOMFORT. TOBIN MIDLINE IN PLACE. FLUSHES WELL SITE CLEAR. BILATERAL SOFT WRIST RESTRAINTS ON, CHECKED FOR CIRCULATION, WITHIN NORMAL, NO SKIN BREAKDOWN. THEN EVERY 2 HOURS. HOB ELEVATED, SAFETY MEASURES IN PLACE, BED LOCKED ON LOWEST POSITION, CALL LIGHT WITHIN REACH. WILL ENDORSE TO NEXT SHIFT FOR TEA.
[2022-09-19 20:00] VITALS: BP 125/74
[2022-09-19] MEDS: TERAZOSIN HCL 1 MG CAPSULE PO SCH (22:08)
--- NOTE | 2022-09-19 23:20 | NUR ---
INSTRUCTOR KNITTING NOTE PT ON BIPAP, RATE 12, OXYGEN 28%, IPAP 18, EPAP 12. TOLERATING WELL. PT IS DROWSY, BUT EASILY AROUSABLE.
[2022-09-20] VITALS: BP 103/62
[2022-09-20] MEDS: CIPROFLOXACIN HCL 500 MG TABLET PO SCH (02:19)
[2022-09-20] MEDS: ALBUTEROL FS 2.5 MG/0.5 ML VIAL.NEB NEB SCH ×4 (02:24→19:35)
[2022-09-20] MEDS: IPRATROPIUM NEB FS 0.5 MG/2.5 ML AMPUL.NEB IH SCH ×4 (02:24→19:35)
[2022-09-20 04:00] VITALS: BP 148/80
[2022-09-20] MEDS: METRONIDAZOLE 500 MG TABLET PO SCH (05:42)
[2022-09-20 05:53] LABS: BASOPHILS % (AUTO) 0.6 % (0.0-2.0); EOSINOPHILS % (AUTO) 2.6 % (0.0-6.0); HEMATOCRIT 37 % (33-45); HEMOGLOBIN 10.8 g/dL (11.5-14.8); LYMPHOCYTES # (AUTO) 1.3 K/uL (0.8-4.8); LYMPHOCYTES % (AUTO) 15.9 % (20.0-44.0); MEAN CORPUSCULAR HGB CONC 30 g/dl (31.0-36.0); MEAN CORPUSCULAR VOLUME 87 fL (82-100); MONOCYTES # (AUTO) 0.8 K/uL (0.1-1.30); MONOCYTES % (AUTO) 9.7 % (2.0-12.0); NEUTROPHILS # (AUTO) 5.9 K/uL (1.8-8.9); NEUTROPHILS % (AUTO) 71.2 % (43.0-81.0); PLATELET COUNT (AUTO) 151 K/uL (150-450); RED BLOOD CELL COUNT(AUTO) 4.21 MIL/uL (4.0-5.2); WHITE BLOOD COUNT (AUTO) 8.3 K/uL (4.3-11.0)
[2022-09-20 06:21] LABS: ALANINE AMINOTRANSFERASE 15 U/L (12-78); ALBUMIN 2.9 g/dL (3.4-5.0); ALKALINE PHOSPHATASE 101 U/L (46-116); ASPARTATE AMINOTRANSFERASE 30 U/L (15-37); BILIRUBIN,DIRECT 0.1 mg/dL (0.0-0.2); BILIRUBIN,TOTAL 0.5 mg/dL (0.2-1.0); CARBON DIOXIDE 21 mmol/L (21-32); CHLORIDE 114 mmol/L (98-107); CREATININE 1.9 mg/dL (0.6-1.3); GLUCOSE 111 mg/dL (74-106); PHOSPHORUS 3.2 mg/dL (2.5-4.9); POTASSIUM 4.7 mmol/L (3.5-5.1); SODIUM SERUM 145 mmol/L (136-145); TOTAL PROTEIN, SERUM 6.9 g/dL (6.4-8.2); UREA NITROGEN, BLOOD 24 mg/dL (7-18)
--- NOTE | 2022-09-20 06:30 | NUR ---
HYDRAULIC CONTROLS TECHNICIAN CLOSING NOTES PT IN BED, AWAKE. PATIENT ON 02 VIA NC 2 LPM, NO SIGNS OF RESPIRATORY DISTRESS, SATURATION 97%. CONTROLLED AFIB ON MONITOR, HR 88. NO SIGNS OF CHEST PAIN/DISCOMFORT. NOEMÍ MIDLINE IN PLACE. FLUSHES WELL, SITE CLEAR. BILATERAL SOFT WRIST RESTRAINTS ON, WERE REMOVED AND CIRCULATION WAS CHECKED EVERY 2 HOURS, NO SKIN BREAKDOWN NOTED. HOB ELEVATED, SAFETY MEASURES IN PLACE, BED LOCKED ON LOWEST POSITION, SR UP X3, CALL LIGHT WITHIN REACH. WILL BE ENDORSED TO THE NEXT SHIFT FOR TEA.
[2022-09-20 08:00] VITALS: BP 126/58
[2022-09-20] MEDS: SENNOSIDES 8.6 MG TABLET PO SCH (08:49)
[2022-09-20] MEDS: CHOLECALCIFEROL 1,000 UNIT TABLET (VIT D3) PO SCH (08:49)
[2022-09-20] MEDS: DIVALPROEX SODIUM 250 MG TABLET.DR PO SCH ×2 (08:49→20:28)
[2022-09-20] MEDS: ISOSORBIDE MONONITRATE (30MG) 30 MG TAB.SR.24H PO SCH (08:49)
[2022-09-20] MEDS: PANTOPRAZOLE 40 MG TABLET.DR PO SCH (08:50)
[2022-09-20] MEDS: hydrALAZINE HCL 50 MG TABLET PO SCH ×3 (08:50→16:46)
[2022-09-20] MEDS: CYANOCOBALAMIN 500 MCG TABLET PO SCH (08:50)
[2022-09-20] MEDS: DOCUSATE SODIUM 100 MG CAPSULE PO SCH ×2 (08:50→16:45)
[2022-09-20] MEDS: ASPIRIN EC 81 MG TABLET.DR PO SCH (08:50)
[2022-09-20] MEDS: ACIDOPHILUS/BULGARICUS 1 EACH TAB.CHEW PO SCH ×2 (08:50→16:45)
[2022-09-20] MEDS: THERAHONEY GEL 1.5 OZ TUBE TP SCH (08:51)
[2022-09-20] MEDS: CLOTRIMAZOLE 1% 15 GM TUBE TP SCH ×2 (08:51→16:45)
[2022-09-20] MEDS: CARVEDILOL 3.125 MG TABLET PO SCH ×2 (08:51→20:28)
[2022-09-20] MEDS: ENSURE CLEAR 237 ML LIQUID (MIX BERRY) PO SCH ×3 (08:51→16:45)
[2022-09-20] MEDS: LEVOTHYROXINE SODIUM 100 MCG TABLET PO SCH (08:51)
[2022-09-20] MEDS: CALCIUM POLYCARBOPHIL 625 MG TABLET PO SCH ×2 (08:57→16:45)
[2022-09-20] MEDS: UMECLIDINIUM BRM INH SCH (08:57)
[2022-09-20] MEDS: VILANTEROL TR INH SCH (08:57)
[2022-09-20] MEDS: CRESTOR 20 MG PO SCH (08:58)
[2022-09-20] MEDS: SODIUM POLYSTYRENE SULF. PWD 15 GM UDC PO SCH (09:02)
[2022-09-20 12:00] VITALS: BP 123/61
[2022-09-20 16:00] VITALS: BP 130/79
--- NOTE | 2022-09-20 16:30 | NUR ---
DR. HUNT INFORMED THE PATIENT AND HER SON AND HER DAUGHTER THAT TODAY'S BRAIN FL SHOWES THAT PATIENT HAS A LEFT SIDE STROKE WHICH AFFECTED HER SPEECH. DR. HUNT ORDERED SPEECH THERAPIST FOR TOMORROW MORNING.
--- NOTE | 2022-09-20 18:55 | NUR ---
RN CLOSING NOTES PATIENT A/O X2 WITH CONFUSION AT TIMES, SLURRED SPEECH DUE TO LEFT SIDE BRAIN STROKE PER DR. HUNT'S REPORT. SPEECH THERAPY ORDERED FOR TOMORROW AM AT 1000. PATIENT ON NC 2 LITERS TOLERATING WELL. PATIENT REMAINS WITH RESTRAINS BECAUSE SHE REMOVES THE LINES. PATIENT AMBULATES WITH TURBINE ENGINE ASSEMBLER FOR RESTROOM. ALL SAFETY PRECAUTIONS IMPLEMENTED CALL LIGHT WITHIN REACH, BED AT LOWEST POSITION, BED SIDE RAILS X2. WILL ENDORSE THE PATIENT TO PM SHIFT FOR TEA.
--- NOTE | 2022-09-20 19:10 | NUR ---
RN OPENING NOTES PATIENT IN BED, AWAKE, A/O X2 WITH CONFUSION AT TIMES. SLURRED SPEECH DUE TO LEFT SIDE BRAIN STROKE PER DR. HUNT'S REPORT. AFIB ON THE MONITOR. PATIENT ON NC 2 LITERS TOLERATING WELL, NO SINGS OF RESPIRATORY DISTRESS. BILATERAL SOFT WRIST RESTRAINS IN PLACE, SKIN AND CIRCULATION CHECKED, IS INTACT. NOEMÍ MIDLINE FLUSHES WELL, IS PATENT AND INTACT. PATIENT AMBULATES WITH PHOTOVOLTAIC SUBCONTRACTOR FOR RESTROOM. ALL SAFETY PRECAUTIONS IMPLEMENTED: BED LOCKED AT THE LOWEST POSITION, SIDE RAILS X2, CALL LIGHT AND BELONGINGS WITHIN REACH. WILL CONTINUE TO MONITOR.
[2022-09-20 20:00] VITALS: BP 118/71
[2022-09-20] MEDS: TERAZOSIN HCL 1 MG CAPSULE PO SCH (21:05)
--- NOTE | 2022-09-20 21:15 | NUR ---
HAND CULTIVATOR NOTE PT ON BIPAP, RATE 12, OXYGEN 28%, IPAP 18, EPAP 12. TOLERATING WELL. PT IS DROWSY, BUT EASILY AROUSABLE.
[2022-09-21] VITALS: BP 119/56
[2022-09-21] MEDS: IPRATROPIUM NEB FS 0.5 MG/2.5 ML AMPUL.NEB IH SCH ×4 (01:22→19:44)
[2022-09-21] MEDS: ALBUTEROL FS 2.5 MG/0.5 ML VIAL.NEB NEB SCH ×4 (01:22→19:44)
--- NOTE | 2022-09-21 03:42 | NUR ---
RT pt on bipap. settings 18/12, R 12, 28%. tolerated well throughout the night. neb txs given as ordered
[2022-09-21 04:00] VITALS: BP 137/80
--- NOTE | 2022-09-21 05:20 | NUR ---
GAS BRAZER NOTE PATIENT TAKEN OFF NOC BIPAP, PUT ON 2 LITTER OF SUPPLEMENTAL OXYGEN VIA NASAL CANNULA. TOLERATING WELL, WILL CONTINUE TO MONITOR
--- NOTE | 2022-09-21 06:22 | NUR ---
RN CLOSING NOTES PATIENT IN BED, AWAKE, A/O X2 WITH CONFUSION AT TIMES. SLURRED SPEECH DUE TO LEFT SIDE BRAIN STROKE PER DR. HUNT'S REPORT. AFIB ON THE MONITOR, HR 90. PATIENT ON NC 2 LITERS TOLERATING WELL, NO SINGS OF RESPIRATORY DISTRESS. BILATERAL SOFT WRIST RESTRAINS IN PLACE, SKIN AND CIRCULATION CHECKED EVERY 2 HOURS, IS INTACT. NOEMÍ MIDLINE FLUSHES WELL, IS PATENT AND INTACT. PATIENT AMBULATES WITH INSPECTOR SHEET METAL PARTS TO THE RESTROOM. ALL SAFETY PRECAUTIONS IMPLEMENTED: BED LOCKED AT THE LOWEST POSITION, SIDE RAILS X2, CALL LIGHT AND BELONGINGS WITHIN REACH. WILL CONTINUE TO MONITOR. Addendum: 09/21/22 at 0633 by FREDY RODRIGUEZ RN RN CLOSING NOTES PATIENT IN BED, AWAKE, A/O X2 WITH CONFUSION AT TIMES. SLURRED SPEECH DUE TO LEFT SIDE BRAIN STROKE PER DR. HUNT'S REPORT. AFIB ON THE MONITOR, HR 90. PATIENT ON NC 2 LITERS TOLERATING WELL, NO SINGS OF RESPIRATORY DISTRESS. BILATERAL SOFT WRIST RESTRAINS IN PLACE, SKIN AND CIRCULATION CHECKED EVERY 2 HOURS, IS INTACT. NOEMÍ MIDLINE FLUSHES WELL, IS PATENT AND INTACT. PATIENT AMBULATES WITH INSPECTOR SHEET METAL PARTS TO THE RESTROOM. ALL SAFETY PRECAUTIONS IMPLEMENTED: BED LOCKED AT THE LOWEST POSITION, SIDE RAILS X3, CALL LIGHT AND BELONGINGS WITHIN REACH, BED ALARM ON. WILL ENDORSE TO THE NEXT SHIFT FOR TEA
[2022-09-21 06:48] LABS: BASOPHILS % (AUTO) 0.6 % (0.0-2.0); EOSINOPHILS % (AUTO) 1.3 % (0.0-6.0); HEMATOCRIT 33 % (33-45); HEMOGLOBIN 10.2 g/dL (11.5-14.8); LYMPHOCYTES # (AUTO) 1.2 K/uL (0.8-4.8); LYMPHOCYTES % (AUTO) 16.2 % (20.0-44.0); MEAN CORPUSCULAR HGB CONC 31 g/dl (31.0-36.0); MEAN CORPUSCULAR VOLUME 84 fL (82-100); MONOCYTES # (AUTO) 0.7 K/uL (0.1-1.30); MONOCYTES % (AUTO) 9.7 % (2.0-12.0); NEUTROPHILS # (AUTO) 5.3 K/uL (1.8-8.9); NEUTROPHILS % (AUTO) 72.2 % (43.0-81.0); PLATELET COUNT (AUTO) 147 K/uL (150-450); RED BLOOD CELL COUNT(AUTO) 3.87 MIL/uL (4.0-5.2); WHITE BLOOD COUNT (AUTO) 7.4 K/uL (4.3-11.0)
[2022-09-21 07:00] LABS: CARBON DIOXIDE 25 mmol/L (21-32); CHLORIDE 113 mmol/L (98-107); CREATININE 1.7 mg/dL (0.6-1.3); GLUCOSE 117 mg/dL (74-106); POTASSIUM 3.7 mmol/L (3.5-5.1); SODIUM SERUM 146 mmol/L (136-145); UREA NITROGEN, BLOOD 21 mg/dL (7-18)
[2022-09-21 08:00] VITALS: BP 155/84
[2022-09-21] MEDS: CHOLECALCIFEROL 1,000 UNIT TABLET (VIT D3) PO SCH (08:50)
[2022-09-21] MEDS: PANTOPRAZOLE 40 MG TABLET.DR PO SCH (08:50)
[2022-09-21] MEDS: DOCUSATE SODIUM 100 MG CAPSULE PO SCH ×2 (08:51→16:21)
[2022-09-21] MEDS: CALCIUM POLYCARBOPHIL 625 MG TABLET PO SCH ×2 (08:51→16:24)
[2022-09-21] MEDS: ACIDOPHILUS/BULGARICUS 1 EACH TAB.CHEW PO SCH ×2 (08:51→16:21)
[2022-09-21] MEDS: ISOSORBIDE MONONITRATE (30MG) 30 MG TAB.SR.24H PO SCH (08:51)
[2022-09-21] MEDS: FUROSEMIDE 20 MG TABLET PO SCH (08:51)
[2022-09-21] MEDS: LEVOTHYROXINE SODIUM 100 MCG TABLET PO SCH (08:51)
[2022-09-21] MEDS: DIVALPROEX SODIUM 250 MG TABLET.DR PO SCH ×2 (08:51→20:57)
[2022-09-21] MEDS: CYANOCOBALAMIN 500 MCG TABLET PO SCH (08:51)
[2022-09-21] MEDS: SENNOSIDES 8.6 MG TABLET PO SCH (08:52)
[2022-09-21] MEDS: CARVEDILOL 3.125 MG TABLET PO SCH ×2 (08:52→20:57)
[2022-09-21] MEDS: hydrALAZINE HCL 50 MG TABLET PO SCH ×3 (08:53→16:22)
[2022-09-21] MEDS: CLOTRIMAZOLE 1% 15 GM TUBE TP SCH ×2 (08:53→16:23)
[2022-09-21] MEDS: THERAHONEY GEL 1.5 OZ TUBE TP SCH (08:53)
[2022-09-21] MEDS: ENSURE CLEAR 237 ML LIQUID (MIX BERRY) PO SCH ×3 (08:53→16:22)
[2022-09-21] MEDS: VILANTEROL TR INH SCH (09:09)
[2022-09-21] MEDS: UMECLIDINIUM BRM INH SCH (09:09)
[2022-09-21] MEDS: CRESTOR 20 MG PO SCH (11:21)
[2022-09-21 12:00] VITALS: BP 118/65
[2022-09-21 16:00] VITALS: BP 96/65
--- NOTE | 2022-09-21 18:44 | NUR ---
RN CLOSING NOTES PATIENT A/O X2 WITH CONFUSION AT TIMES, SLURRED SPEECH DUE TO LEFT SIDE BRAIN STROKE PER DR. HUNT'S REPORT. PATIENT ON NC 2 LITERS TOLERATING WELL AND NOCTURNAL BIPAP AT NIGHTS. PATIENT REMAINS WITH RESTRAINS BECAUSE SHE REMOVES THE LINES. PATIENT AMBULATES WITH LEGAL PRACTICE MANAGER FOR RESTROOM. PER DR. JERNIGAN'S PROGRESSIVE NOTES PATIENT IS CLEAR FOR DC PLANNING; DISPO PER FAMILY AND CM. ALL SAFETY PRECAUTIONS IMPLEMENTED CALL LIGHT WITHIN REACH, BED AT LOWEST POSITION, BED SIDE RAILS X2. WILL ENDORSE THE PATIENT TO PM SHIFT FOR TEA.
--- NOTE | 2022-09-21 19:46 | NUR ---
MARKETING TRAFFIC MANAGER OPENING NOTE PATIENT AWAKE IN BED WITH FAMILY AT BEDSIDE, PT ALERT/ORIENTED X 2 WITH CONFUSION, APHASIA AND SLURRED SPEECH. PATIENT STABLE ON 2 LPM OF O2 VIA NASAL CANNULA, NO S/S OF DISTRESS OR SOB NOTED, BREATHING EVEN AND UNLABORED. PATIENT ON EXTERNAL DIGITAL MEDIA DESIGNER READING CONTROLLED A. FIB, HR: 88. NOEMÍ MIDLINE INTACT AND SALINE LOCKED. PATIENT RESTRAINTS OFF AT THIS TIME FAMILY IS AT BEDSIDE, FAMILY STATED THEY WILL INFORM THIS RN WHEN THEY ARE LEAVING TO PUT RESTRAINTS BACK ON. SAFETY MEASURES IN PLACE: CALL LIGHT WITHIN REACH, SIDE RAILS UP X 3, BED LOCKED IN LOWEST POSITION, HOB ELEVATED, BED ALARM ON. WILL CONTINUE TO MONITOR
[2022-09-21 20:30] VITALS: BP 114/53
[2022-09-21] MEDS: TERAZOSIN HCL 1 MG CAPSULE PO SCH (22:00)
--- NOTE | 2022-09-21 22:25 | NUR ---
SCRIPT DEVELOPER NOTE HELD HYTRIN 1 MG D/T LOW BP OF 97/66, HR: 83. WILL CONTINUE TO MONITOR
[2022-09-22] VITALS: BP 118/69
[2022-09-22] MEDS: IPRATROPIUM NEB FS 0.5 MG/2.5 ML AMPUL.NEB IH SCH ×4 (01:23→20:23)
[2022-09-22] MEDS: ALBUTEROL FS 2.5 MG/0.5 ML VIAL.NEB NEB SCH ×4 (01:23→20:23)
--- NOTE | 2022-09-22 03:40 | NUR ---
BUILDING COORDINATOR NOTE REPORT GIVEN TO LUISA GUILLEN FOR CONTINUATION OF CARE. PATIENT SLEEPING IN BED. NO S/S OF DISTRESS OR SOB NOTED, PATIENT ON BIPAP. MEDICATIONS GIVEN ORDERED, PT NEEDS MET
--- NOTE | 2022-09-22 03:40 | NUR ---
MOLD CLEANER NOTE RECEIVED REPORT FROM NURSE MAYORGA. WILL CONTINUE TO MONITOR PT.
[2022-09-22 04:00] VITALS: BP 120/69
--- NOTE | 2022-09-22 06:40 | NUR ---
RETAIL REPRESENTATIVE OPENING NOTE LEFT PATIENT AWAKE IN BED. PT ALERT/ORIENTED X 2 WITH CONFUSION, APHASIA AND SLURRED SPEECH. ON 2 LPM O2 VIA NASAL CANNULA. NO S/S OF DISTRESS OR SOB NOTED, BREATHING EVEN AND UNLABORED. PATIENT ON EXTERNAL COMMERCIAL ADMINISTRATOR READING CONTROLLED A. FIB, HR: 89. RIGHT UA MIDLINE INTACT AND SALINE LOCKED. PATIENT ON RESTRAINTS FOR SAFETY. SAFETY MEASURES IN PLACE: CALL LIGHT WITHIN REACH, SIDE RAILS UP X 3, BED LOCKED IN LOWEST POSITION, HOB ELEVATED, BED ALARM ON. WILL ENDORSE PT TO MORNING SHIFT NURSE FOR CONTINUITY OF CARE.
--- NOTE | 2022-09-22 07:02 | NUR ---
RN OPENING NOTe PATIENT ASLEEP, STABLE ON 2 LPM OF O2 VIA NASAL CANNULA, NO S/S OF DISTRESS OR SOB NOTED, BREATHING EVEN AND UNLABORED. PATIENT ON EXTERNAL POWER SUPERINTENDENT READING CONTROLLED A. FIB, HR: 80. NOEMÍ MIDLINE INTACT AND SALINE LOCKED. SAFETY MEASURES IN PLACE: CALL LIGHT WITHIN REACH, SIDE RAILS UP X 3, BED LOCKED IN LOWEST POSITION, HOB ELEVATED, BED ALARM ON. WILL CONTINUE TO MONITOR
[2022-09-22 07:33] LABS: BASOPHILS % (AUTO) 0.4 % (0.0-2.0); EOSINOPHILS % (AUTO) 1.7 % (0.0-6.0); HEMATOCRIT 36 % (33-45); HEMOGLOBIN 10.8 g/dL (11.5-14.8); LYMPHOCYTES # (AUTO) 1.4 K/uL (0.8-4.8); LYMPHOCYTES % (AUTO) 17.8 % (20.0-44.0); MEAN CORPUSCULAR HGB CONC 31 g/dl (31.0-36.0); MEAN CORPUSCULAR VOLUME 86 fL (82-100); MONOCYTES # (AUTO) 0.9 K/uL (0.1-1.30); MONOCYTES % (AUTO) 11.4 % (2.0-12.0); NEUTROPHILS # (AUTO) 5.6 K/uL (1.8-8.9); NEUTROPHILS % (AUTO) 68.7 % (43.0-81.0); PLATELET COUNT (AUTO) 146 K/uL (150-450); RED BLOOD CELL COUNT(AUTO) 4.15 MIL/uL (4.0-5.2); WHITE BLOOD COUNT (AUTO) 8.1 K/uL (4.3-11.0)
[2022-09-22 07:48] LABS: CARBON DIOXIDE 23 mmol/L (21-32); CHLORIDE 112 mmol/L (98-107); GLUCOSE 89 mg/dL (74-106); MAGNESIUM 2.1 mg/dL (1.8-2.4); PHOSPHORUS 3.8 mg/dL (2.5-4.9); POTASSIUM 3.6 mmol/L (3.5-5.1); SODIUM SERUM 145 mmol/L (136-145); UREA NITROGEN, BLOOD 25 mg/dL (7-18)
[2022-09-22 08:00] VITALS: BP 140/72
[2022-09-22] MEDS: PANTOPRAZOLE 40 MG TABLET.DR PO SCH (08:03)
[2022-09-22] MEDS: LEVOTHYROXINE SODIUM 100 MCG TABLET PO SCH (08:03)
[2022-09-22] MEDS: ENSURE CLEAR 237 ML LIQUID (MIX BERRY) PO SCH ×3 (08:04→17:35)
[2022-09-22] MEDS: THERAHONEY GEL 1.5 OZ TUBE TP SCH (08:36)
[2022-09-22] MEDS: CLOTRIMAZOLE 1% 15 GM TUBE TP SCH ×2 (08:36→17:27)
[2022-09-22] MEDS: DOCUSATE SODIUM 100 MG CAPSULE PO SCH ×2 (08:58→17:29)
[2022-09-22] MEDS: CALCIUM POLYCARBOPHIL 625 MG TABLET PO SCH ×2 (08:58→17:29)
[2022-09-22] MEDS: CRESTOR 20 MG PO SCH (08:59)
[2022-09-22] MEDS: hydrALAZINE HCL 50 MG TABLET PO SCH ×3 (08:59→17:00)
[2022-09-22] MEDS: CYANOCOBALAMIN 500 MCG TABLET PO SCH (09:00)
[2022-09-22] MEDS: CARVEDILOL 3.125 MG TABLET PO SCH (09:00)
[2022-09-22] MEDS: SENNOSIDES 8.6 MG TABLET PO SCH (09:01)
[2022-09-22] MEDS: FUROSEMIDE 20 MG TABLET PO SCH (09:01)
[2022-09-22] MEDS: CHOLECALCIFEROL 1,000 UNIT TABLET (VIT D3) PO SCH (09:01)
[2022-09-22] MEDS: DIVALPROEX SODIUM 250 MG TABLET.DR PO SCH (09:01)
[2022-09-22] MEDS: ISOSORBIDE MONONITRATE (30MG) 30 MG TAB.SR.24H PO SCH (09:01)
[2022-09-22] MEDS: ACIDOPHILUS/BULGARICUS 1 EACH TAB.CHEW PO SCH ×2 (09:01→17:29)
[2022-09-22] MEDS: UMECLIDINIUM BRM INH SCH (09:02)
[2022-09-22] MEDS: VILANTEROL TR INH SCH (09:02)
--- NOTE | 2022-09-22 10:45 | NUR ---
REPORT GIVEN TO LUISA ALY
--- NOTE | 2022-09-22 10:45 | NUR ---
RN OPENING NOTE PATIENT AWAKE IN BED. PT ALERT/ORIENTED X 2 WITH CONFUSION, APHASIA AND SLURRED SPEECH. ON 2 LPM O2 VIA NASAL CANNULA. NO S/S OF DISTRESS OR SOB NOTED, BREATHING EVEN AND UNLABORED. PATIENT ON EXTERNAL HANDS ASSEMBLER READING CONTROLLED A. FIB, HR: 80. RIGHT UA MIDLINE INTACT AND SALINE LOCKED. PATIENT ON RESTRAINTS FOR SAFETY AND WILL BE REMOVED PER HOSPITALS PROTOCOL TO ASSESS FOR CIRCULATION AND SKIN INTEGRITY. SAFETY MEASURES IN PLACE, CALL LIGHT WITHIN REACH, SIDE RAILS UP X 3, BED LOCKED IN LOWEST POSITION, HOB ELEVATED, BED ALARM ON. WILL CONTINUE TO MONITOR.
[2022-09-22] MEDS ORDERED: CARV3.122 PO (11:34)
[2022-09-22] MEDS ORDERED: TERA1CAP11 PO (11:34)
[2022-09-22] MEDS ORDERED: HYDR-4077 PO (11:34)
[2022-09-22] MEDS ORDERED: ISOS30TA86 PO (11:34)
[2022-09-22 12:00] VITALS: BP 95/49
[2022-09-22 16:00] VITALS: BP 92/59
[2022-09-22 17:00] VITALS: BP 92/64
--- NOTE | 2022-09-22 18:15 | NUR ---
RN NOTE PATIENTS VITAL SIGNS 88/64 HR 76. MATTIE LIAO WAS CALLED AND RECEIVED ORDERS FOR 500 NS BOLUS. ORDERS BEING CARRIED OUT. WILL CONTINUE TO MONITOR.
[2022-09-22] MEDS ORDERED: IV NS 0.9% 500 ML IV ONE (18:30)
--- NOTE | 2022-09-22 19:12 | NUR ---
RN NOTE MANUAL BP RE CHECKED 105/60 HR 90.
--- NOTE | 2022-09-22 19:48 | NUR ---
RN CLOSING NOTE PATIENT AWAKE IN BED. PT ALERT/ORIENTED X 2 WITH CONFUSION, APHASIA AND SLURRED SPEECH. ON 2 LPM O2 VIA NASAL CANNULA. NO S/S OF DISTRESS OR SOB NOTED, BREATHING EVEN AND UNLABORED. PATIENT ON EXTERNAL EDUCATIONAL PSYCHOLOGY PROFESSOR READING CONTROLLED A. FIB, HR: 92. RIGHT UA MIDLINE INTACT AND SALINE LOCKED. PATIENT ON RESTRAINTS FOR SAFETY AND REMOVED PER HOSPITALS PROTOCOL TO ASSESS FOR CIRCULATION AND SKIN INTEGRITY. BLOOD PRESSURE WITHIN NORMAL LIMITS. PATIENT WILL BE D/C LATER TODAY. [facility] WAS CALLED AND REPORT GIVEN TO MARTINA MORAN. SAFETY MEASURES IN PLACE, CALL LIGHT WITHIN REACH, SIDE RAILS UP X 3, BED LOCKED IN LOWEST POSITION, HOB ELEVATED, BED ALARM ON. REPORT GIVEN TO BLACK POWDER GLAZING OPERATOR NURSE FOR CONTINUING OF CARE.
--- NOTE | 2022-09-22 21:00 | NUR ---
SHOWER DOORS AND PANELS FABRICATOR NOTE PATIENT'S TRANSPORTATION ARRIVED. REPORT GIVEN TO contact lens fitter. ALL DISCHARGE PAPERWORK ALONG WITH BELONGINGS SHEET SIGNED BY FAMILY AND PLACED IN CHART. (PATIENT UNABLE TO SIGN FOR HERSELF, A/OX1). IV ACCESS REMAINED. ID BAND REMOVED AND PROPERLY DISPOSED OF PER PROTOCOL. PATIENT STABLE; VS WNL. PATIENT SUCCESSFULLY TRANSFERRED TO [facility] AND LEFT THE UNIT WITH FAMILY ALONGSIDE.
== END 2022-09-22 23:30 | DRG 64 ==
LOC: ER 21:23 → TELE1 09-15 04:14
PROVIDERS: ADMIT Nurse Practitioner Acute Care; ATTEND Nurse Practitioner Acute Care
PROC: 05H933Z Insertion of Infusion Device into Right Brachial Vein, Percutaneous Approach (ICD-10-PCS; 2022-09-16)
PROC: 05H933Z Insertion of Infusion Device into Right Brachial Vein, Percutaneous Approach (ICD-10-PCS; 2022-09-17)
PROC: 05HD33Z Insertion of Infusion Device into Right Cephalic Vein, Percutaneous Approach (ICD-10-PCS; 2022-09-18)
PROC: 5A09357 Assistance with Respiratory Ventilation, Less than 24 Consecutive Hours, Continuous Positive Airway Pressure (ICD-10-PCS; principal; 2022-09-20)
DX: I63.9 Cerebral infarction, unspecified (principal); G93.41 Metabolic encephalopathy; I50.33 Acute on chronic diastolic (congestive) heart failure; I21.4 Non-ST elevation (NSTEMI) myocardial infarction; N17.0 Acute kidney failure with tubular necrosis; I13.0 Hypertensive heart and chronic kidney disease with heart failure and stage 1 through stage 4 chronic kidney disease, or unspecified chronic kidney disease; I48.20 Chronic atrial fibrillation, unspecified; J98.11 Atelectasis; N39.0 Urinary tract infection, site not specified; E87.20 Acidosis, unspecified; E87.0 Hyperosmolality and hypernatremia; D68.59 Other primary thrombophilia; E66.2 Morbid (severe) obesity with alveolar hypoventilation; K80.50 Calculus of bile duct without cholangitis or cholecystitis without obstruction; N18.9 Chronic kidney disease, unspecified; Z20.822 Contact with and (suspected) exposure to COVID-19; I25.10 Atherosclerotic heart disease of native coronary artery without angina pectoris; Z95.1 Presence of aortocoronary bypass graft; E78.5 Hyperlipidemia, unspecified; E03.9 Hypothyroidism, unspecified; Z96.649 Presence of unspecified artificial hip joint; Z95.828 Presence of other vascular implants and grafts; Z95.2 Presence of prosthetic heart valve; Z88.0 Allergy status to penicillin; Z88.8 Allergy status to other drugs, medicaments and biological substances; Z79.51 Long term (current) use of inhaled steroids; Z79.82 Long term (current) use of aspirin; Z79.899 Other long term (current) drug therapy; I27.20 Pulmonary hypertension, unspecified; I25.2 Old myocardial infarction; I70.0 Atherosclerosis of aorta; J44.9 Chronic obstructive pulmonary disease, unspecified; K57.30 Diverticulosis of large intestine without perforation or abscess without bleeding; K82.8 Other specified diseases of gallbladder; N28.1 Cyst of kidney, acquired; B96.89 Other specified bacterial agents as the cause of diseases classified elsewhere; E87.5 Hyperkalemia; E83.52 Hypercalcemia; Z68.36 Body mass index [BMI] 36.0-36.9, adult; D63.8 Anemia in other chronic diseases classified elsewhere; F01.50 Vascular dementia, unspecified severity, without behavioral disturbance, psychotic disturbance, mood disturbance, and anxiety; T50.1X5A Adverse effect of loop [high-ceiling] diuretics, initial encounter; Y92.9 Unspecified place or not applicable; Z78.1 Physical restraint status; Z86.73 Personal history of transient ischemic attack (TIA), and cerebral infarction without residual deficits; R74.8 Abnormal levels of other serum enzymes; S80.812A Abrasion, left lower leg, initial encounter; X58.XXXA Exposure to other specified factors, initial encounter; B96.20 Unspecified Escherichia coli [E. coli] as the cause of diseases classified elsewhere
CPT/HCPCS: 36410; 36415; 36600; 70551-TC; 71045-TC; 74181-TC; 76770-TC; 80048-TC; 80061-TC; 80076-TC; 81001; 82607-TC; 82803-TC; 83540-TC; 83605-TC; 83690-TC; 83735-TC; 83880; 84100-TC; 84439-TC; 84443-TC; 84484-TC; 85025-TC; 85378-TC; 87040-TC; 87081-TC; 87086-TC; 92507-TC; 92521; 93307-TC; 93970-TC; 94660; 94762-TC; 94799-TC; 97110-TC; 97116-TC; 97530-TC; A4216; A4223; C9803; G0378; J0692; J0744; J1160; J1940; J2270; J2405; J3370; J3490; J7042; J7050; J7060

== ENCOUNTER 2022-12-01 23:57 | Inpatient (IN) | payer MEDICARE, BC ==
[~2022-12-01] VITALS: Ht 167.6 cm; Wt 87.5 kg
[~2022-12-01 23:57] MED LIST changes: +ACET-2605 PO; -ACID1TAB12 PO; +ALBU8.5H8 IH; -ALPR0.25 PO; -ASPI-1420 PO; +BUSP15TA3 PO; -CHOL200026 PO; +CLOB15OI3 TP; +DICL100G34 TP; -DIVA250T47 PO; -DOCU240C PO; +DONE10TA44 PO; +DULO30CA2 PO; +EZET10TA16 PO; +FLUT16SP16; +FURO-144 PO; +FURO-145 PO; +GABA-532 PO; +GUAI100S11 PO; +GUAI600T31 PO; -IPRA3AMP23 IH; +KETO120S5 TP; +KETO15CR2 TP; -LOSA50TA39 PO; +MEMA10TA PO; -NITR0.4T48 SL; -ONDA4TAB5 PO; +OXYC5TAB3 PO; -OXYM-12; +POLY15DR40 EACHEYE; +POLY17PO4 PO; -SENN-261 PO; +TERA1CAP11 PO; -TERA2CAP4 PO; +[UNRECOGNIZED DRUG - CODE] OP
[2022-12-02] MEDS ORDERED: IOHEXOL-350 100 ML VIAL IV ONE (00:12)
[2022-12-02 01:13] LABS: BASOPHILS % (AUTO) 0.2 % (0.0-2.0); EOSINOPHILS % (AUTO) 0.2 % (0.0-6.0); HEMATOCRIT 32 % (33-45); LYMPHOCYTES # (AUTO) 0.3 K/uL (0.8-4.8); LYMPHOCYTES % (AUTO) 2.5 % (20.0-44.0); MEAN CORPUSCULAR HEMOGLOBIN 26 PG (26.0-33.0); MEAN CORPUSCULAR HGB CONC 31 g/dl (31.0-36.0); MEAN CORPUSCULAR VOLUME 83 fL (82-100); MONOCYTES # (AUTO) 0.4 K/uL (0.1-1.30); MONOCYTES % (AUTO) 3.7 % (2.0-12.0); NEUTROPHILS # (AUTO) 9.7 K/uL (1.8-8.9); NEUTROPHILS % (AUTO) 93.4 % (43.0-81.0); PLATELET COUNT (AUTO) 190 K/uL (150-450); RED BLOOD CELL COUNT(AUTO) 3.83 MIL/uL (4.0-5.2); RED CELL DISTRIBUTION WIDTH 19.3 % (11.5-15.0); WHITE BLOOD COUNT (AUTO) 10.4 K/uL (4.3-11.0)
[2022-12-02 01:21] LABS: CALCIUM, SERUM 8.7 mg/dL (8.5-10.1); CARBON DIOXIDE 22 mmol/L (21-32); CHLORIDE 106 mmol/L (98-107); CREATININE 2.4 mg/dL (0.6-1.3); GLUCOSE 169 mg/dL (74-106); POTASSIUM 3.7 mmol/L (3.5-5.1); SODIUM SERUM 143 mmol/L (136-145); UREA NITROGEN, BLOOD 36 mg/dL (7-18)
[2022-12-02 01:24] LABS: INR 1.12 (0.91-1.10); PARTIAL THROMBOPLASTIN TIME 23.4 SEC (24.3-34.3); PROTHROMBIN TIME 11.7 SECS (9.2-11.1)
[2022-12-02] MEDS ORDERED: IV NS 0.9% 1,000 ML IV ONE (06:30)
[2022-12-02] MEDS ORDERED: ASPIRIN 325 MG TABLET PO ONE (06:30)
[2022-12-02] MEDS ORDERED: ASPIRIN 325 MG TABLET ONE (06:33)
[2022-12-02] MEDS ORDERED: ZOLPIDEM TARTRATE 5 MG TABLET PO PRN (07:30)
[2022-12-02] MEDS ORDERED: POLYVINYL ALCOHOL 15 ML BOTTLE OP PRN (07:30)
[2022-12-02] MEDS ORDERED: ONDANSETRON HCL/PF 4 MG/2 ML VIAL IVP PRN (07:30)
[2022-12-02] MEDS ORDERED: oxyCODONE/APAP (5/325 MG) 1 UDTAB TABLET PO PRN (07:30)
[2022-12-02] MEDS ORDERED: FLUTICASONE PROPIONATE 16 GM BOTTLE NS PRN (07:30)
[2022-12-02] MEDS ORDERED: ACETAMINOPHEN 325 MG TABLET PO PRN (07:30)
[2022-12-02 07:46] LABS: CALCIUM, SERUM 8.8 mg/dL (8.5-10.1); CARBON DIOXIDE 16 mmol/L (21-32); CHLORIDE 106 mmol/L (98-107); CREATININE 2.3 mg/dL (0.6-1.3); GLUCOSE 120 mg/dL (74-106); POTASSIUM 4.2 mmol/L (3.5-5.1); SODIUM SERUM 138 mmol/L (136-145); UREA NITROGEN, BLOOD 36 mg/dL (7-18)
[2022-12-02 07:52] LABS: ALANINE AMINOTRANSFERASE 102 U/L (12-78); ALBUMIN 3.4 g/dL (3.4-5.0); ALKALINE PHOSPHATASE 217 U/L (46-116); ASPARTATE AMINOTRANSFERASE 165 U/L (15-37); BILIRUBIN,TOTAL 0.6 mg/dL (0.2-1.0); TOTAL PROTEIN, SERUM 7.5 g/dL (6.4-8.2)
[2022-12-02 07:59] LABS: CHOLESTEROL 131 mg/dL (<200); HDL CHOLESTEROL 51 mg/dL (40-60); LDL 57 mg/dL (0-99); THYROID STIMULATING HORMONE 2.208 uIU/mL (0.358-3.74); TRIGLYCERIDES 189 mg/dL (30-150)
[2022-12-02] MEDS ORDERED: ZALE5CAP2 PO (08:38)
[2022-12-02] MEDS ORDERED: METO25TA3 PO (08:38)
[2022-12-02] MEDS ORDERED: CINA30TA2 PO (08:38)
[2022-12-02 08:40] VITALS: BP 101/57; TEMP 97.6; O2SAT 97
[2022-12-02] MEDS: hydrALAZINE HCL 50 MG TABLET PO SCH ×4 (09:00→16:56)
[2022-12-02] MEDS: ISOSORBIDE MONONITRATE (30MG) 30 MG TAB.SR.24H PO SCH (09:00)
[2022-12-02] MEDS ORDERED: ALBUTEROL FS 2.5 MG/0.5 ML VIAL.NEB NEB PRN (09:30)
[2022-12-02] MEDS: CARVEDILOL 6.25 MG TABLET PO SCH ×2 (10:00→21:11)
[2022-12-02] MEDS: DULOXETINE HCL 30 MG CAPSULE.DR PO SCH (10:51)
[2022-12-02] MEDS: DOCUSATE SODIUM 100 MG CAPSULE PO SCH (10:51)
[2022-12-02] MEDS: EZETIMIBE 10 MG TABLET PO SCH (10:51)
[2022-12-02] MEDS: ASPIRIN 81 MG TAB.CHEW PO SCH (10:51)
[2022-12-02] MEDS: CYANOCOBALAMIN 500 MCG TABLET PO SCH (10:52)
[2022-12-02] MEDS: MEMANTINE HCL 5 MG TABLET PO SCH ×2 (10:52→16:58)
[2022-12-02] MEDS: HEPARIN SODIUM, PORCINE 5000 UNITS/1 ML VIAL SQ SCH ×2 (10:58→21:32)
[2022-12-02] MEDS: PANTOPRAZOLE 40 MG TABLET.DR PO SCH (11:04)
[2022-12-02] MEDS: LEVOTHYROXINE SODIUM 100 MCG TABLET PO SCH (11:05)
[2022-12-02] MEDS: FUROSEMIDE 20 MG TABLET PO SCH (11:05)
[2022-12-02] MEDS: busPIRone 5 MG TABLET PO SCH ×2 (12:57→16:58)
[2022-12-02 14:18] VITALS: O2SAT 99
[2022-12-02] MEDS: IPRATROPIUM NEB FS 0.5 MG/2.5 ML AMPUL.NEB NEB SCH ×2 (14:18→19:58)
[2022-12-02] MEDS: ALBUTEROL FS 2.5 MG/0.5 ML VIAL.NEB NEB SCH ×2 (14:18→19:58)
[2022-12-02 14:28] VITALS: O2SAT 99
[2022-12-02 16:00] VITALS: BP 100/60; TEMP 98.1; O2SAT 96
[2022-12-02] MEDS: CALCIUM POLYCARBOPHIL 625 MG TABLET PO SCH (17:13)
[2022-12-02 19:44] VITALS: O2SAT 97
[2022-12-02 20:01] VITALS: O2SAT 99
[2022-12-02] MEDS: DONEPEZIL 5 MG TABLET PO SCH (21:12)
[2022-12-02] MEDS: GABAPENTIN 300 MG CAPSULE PO SCH (21:12)
[2022-12-02] MEDS ORDERED: ATORVASTATIN 10 MG TABLET PO SCH (22:00)
[2022-12-02] MEDS: TERAZOSIN HCL 1 MG CAPSULE PO SCH (22:35)
[2022-12-02] MEDS ORDERED: DILTIAZEM HCL 25 MG IV IV ONE (23:45)
[2022-12-03] VITALS (25 sets, daily range): BP systolic 90–136; BP diastolic 58–107; TEMP 97.6–98.7; O2SAT 91–100
[2022-12-03] MEDS: IPRATROPIUM NEB FS 0.5 MG/2.5 ML AMPUL.NEB NEB SCH ×4 (01:03→19:49)
[2022-12-03] MEDS: ALBUTEROL FS 2.5 MG/0.5 ML VIAL.NEB NEB SCH ×4 (01:03→19:49)
[2022-12-03 06:22] LABS: BASOPHILS % (AUTO) 0.3 % (0.0-2.0); EOSINOPHILS % (AUTO) 0.6 % (0.0-6.0); HEMATOCRIT 30 % (33-45); HEMOGLOBIN 9.6 g/dL (11.5-14.8); LYMPHOCYTES # (AUTO) 0.8 K/uL (0.8-4.8); LYMPHOCYTES % (AUTO) 10.1 % (20.0-44.0); MEAN CORPUSCULAR HEMOGLOBIN 26 PG (26.0-33.0); MEAN CORPUSCULAR HGB CONC 32 g/dl (31.0-36.0); MEAN CORPUSCULAR VOLUME 82 fL (82-100); MONOCYTES # (AUTO) 0.5 K/uL (0.1-1.30); MONOCYTES % (AUTO) 6.8 % (2.0-12.0); NEUTROPHILS # (AUTO) 6.1 K/uL (1.8-8.9); NEUTROPHILS % (AUTO) 82.2 % (43.0-81.0); PLATELET COUNT (AUTO) 168 K/uL (150-450); RED BLOOD CELL COUNT(AUTO) 3.73 MIL/uL (4.0-5.2); RED CELL DISTRIBUTION WIDTH 20.3 % (11.5-15.0); WHITE BLOOD COUNT (AUTO) 7.4 K/uL (4.3-11.0)
[2022-12-03 06:39] LABS: INR 1.09 (0.91-1.10); PARTIAL THROMBOPLASTIN TIME 26.8 SEC (24.3-34.3); PROTHROMBIN TIME 11.4 SECS (9.2-11.1)
[2022-12-03 06:44] LABS: CALCIUM, SERUM 9.3 mg/dL (8.5-10.1); CARBON DIOXIDE 22 mmol/L (21-32); CHLORIDE 103 mmol/L (98-107); CREATININE 2.1 mg/dL (0.6-1.3); GLUCOSE 120 mg/dL (74-106); MAGNESIUM 2.3 mg/dL (1.8-2.4); PHOSPHORUS 4.2 mg/dL (2.5-4.9); SODIUM SERUM 137 mmol/L (136-145); UREA NITROGEN, BLOOD 38 mg/dL (7-18)
[2022-12-03] MEDS: FUROSEMIDE 20 MG TABLET PO SCH (07:30)
[2022-12-03] MEDS: LEVOTHYROXINE SODIUM 100 MCG TABLET PO SCH (07:30)
[2022-12-03] MEDS: PANTOPRAZOLE 40 MG TABLET.DR PO SCH (07:30)
[2022-12-03 08:22] LABS: ABG BASE EXCESS -2.9 mmol/L; ABG OXYGEN SATURATION 89.5 % (92.0-98.5); ABG PCO2 33.6 mmHg (35.0-45.0); ABG PH 7.415 (7.350-7.450); ABG PO2 58.9 mmHg (75.0-100.0); ABG TOTAL HEMOGLOBIN 10.5 G/dL (12.0-16.0); COHb 0.6 % (0.5-1.5); MetHb 0.3 % (0.0-1.5); O2Hb 88.7 % (94.0-97.0); SITE, ABG Right Radial; VENT MODE, BG ROOM AIR
[2022-12-03] MEDS: CARVEDILOL 6.25 MG TABLET PO SCH ×2 (09:00→21:45)
[2022-12-03] MEDS: busPIRone 5 MG TABLET PO SCH ×4 (09:00→16:54)
[2022-12-03] MEDS: ISOSORBIDE MONONITRATE (30MG) 30 MG TAB.SR.24H PO SCH (09:00)
[2022-12-03] MEDS: CYANOCOBALAMIN 500 MCG TABLET PO SCH (09:00)
[2022-12-03] MEDS: DOCUSATE SODIUM 100 MG CAPSULE PO SCH (09:00)
[2022-12-03] MEDS: MEMANTINE HCL 5 MG TABLET PO SCH ×2 (09:00→16:55)
[2022-12-03] MEDS: hydrALAZINE HCL 50 MG TABLET PO SCH ×4 (09:00→16:54)
[2022-12-03] MEDS: EZETIMIBE 10 MG TABLET PO SCH (09:00)
[2022-12-03] MEDS: DULOXETINE HCL 30 MG CAPSULE.DR PO SCH (09:00)
[2022-12-03] MEDS: ASPIRIN 81 MG TAB.CHEW PO SCH (09:00)
[2022-12-03] MEDS: CALCIUM POLYCARBOPHIL 625 MG TABLET PO SCH ×2 (09:00→16:54)
[2022-12-03] MEDS: HEPARIN SODIUM, PORCINE 5000 UNITS/1 ML VIAL SQ SCH (10:00)
[2022-12-03] MEDS ORDERED: DILTIAZEM HCL 50 MG IV IV PRN (11:00)
[2022-12-03] MEDS ORDERED: HEPARIN SODIUM, PORCINE 5000 UNITS/1 ML VIAL IV ONE (12:00)
[2022-12-03] MEDS: HEPARIN INFUSION/D5W 500 ML IV PRN (12:49)
[2022-12-03] MEDS ORDERED: METOPROLOL TARTRATE INJ 5 MG/5 ML AMPUL IVP PRN (14:00)
[2022-12-03] MEDS: METOPROLOL TARTRATE INJ 5 MG/5 ML AMPUL IVP SCH ×2 (14:48→17:54)
[2022-12-03] MEDS ORDERED: IV NS 0.9% 1,000 ML IV ONE (17:00)
[2022-12-03] MEDS: DONEPEZIL 5 MG TABLET PO SCH (22:59)
[2022-12-03] MEDS: ROSUVASTATIN 20 MG PO SCH (23:00)
[2022-12-03] MEDS: GABAPENTIN 300 MG CAPSULE PO SCH (23:00)
[2022-12-03] MEDS: TERAZOSIN HCL 1 MG CAPSULE PO SCH (23:02)
[2022-12-04] VITALS (26 sets, daily range): BP systolic 59–147; BP diastolic 56–97; TEMP 98.2–98.9; O2SAT 89–100
[2022-12-04] MEDS: METOPROLOL TARTRATE INJ 5 MG/5 ML AMPUL IVP SCH ×7 (00:04→22:30)
[2022-12-04] MEDS: ALBUTEROL FS 2.5 MG/0.5 ML VIAL.NEB NEB SCH ×4 (01:30→20:07)
[2022-12-04] MEDS: IPRATROPIUM NEB FS 0.5 MG/2.5 ML AMPUL.NEB NEB SCH ×4 (01:30→20:07)
[2022-12-04 04:50] LABS: BASOPHILS % (AUTO) 0.5 % (0.0-2.0); EOSINOPHILS % (AUTO) 0.6 % (0.0-6.0); HEMATOCRIT 32 % (33-45); LYMPHOCYTES # (AUTO) 0.7 K/uL (0.8-4.8); LYMPHOCYTES % (AUTO) 11.7 % (20.0-44.0); MEAN CORPUSCULAR HEMOGLOBIN 26 PG (26.0-33.0); MEAN CORPUSCULAR HGB CONC 31 g/dl (31.0-36.0); MEAN CORPUSCULAR VOLUME 83 fL (82-100); MONOCYTES # (AUTO) 0.3 K/uL (0.1-1.30); MONOCYTES % (AUTO) 4.2 % (2.0-12.0); NEUTROPHILS # (AUTO) 5.2 K/uL (1.8-8.9); PLATELET COUNT (AUTO) 169 K/uL (150-450); RED BLOOD CELL COUNT(AUTO) 3.91 MIL/uL (4.0-5.2); RED CELL DISTRIBUTION WIDTH 20.4 % (11.5-15.0); WHITE BLOOD COUNT (AUTO) 6.3 K/uL (4.3-11.0)
[2022-12-04 05:10] LABS: CREATINE KINASE, TOTAL 125 U/L (26-192)
[2022-12-04 05:29] LABS: ALANINE AMINOTRANSFERASE 61 U/L (12-78); ALBUMIN 3.2 g/dL (3.4-5.0); ALKALINE PHOSPHATASE 247 U/L (46-116); ASPARTATE AMINOTRANSFERASE 42 U/L (15-37); BILIRUBIN,TOTAL 0.9 mg/dL (0.2-1.0); CALCIUM, SERUM 9.7 mg/dL (8.5-10.1); CARBON DIOXIDE 21 mmol/L (21-32); CHLORIDE 107 mmol/L (98-107); CREATININE 1.9 mg/dL (0.6-1.3); GLUCOSE 96 mg/dL (74-106); MAGNESIUM 2.2 mg/dL (1.8-2.4); PHOSPHORUS 4.2 mg/dL (2.5-4.9); POTASSIUM 4.2 mmol/L (3.5-5.1); SODIUM SERUM 140 mmol/L (136-145); TOTAL PROTEIN, SERUM 7.6 g/dL (6.4-8.2); UREA NITROGEN, BLOOD 36 mg/dL (7-18)
[2022-12-04] MEDS ORDERED: FUROSEMIDE 40 MG TABLET PO SCH (07:30)
[2022-12-04] MEDS: PANTOPRAZOLE 40 MG TABLET.DR PO SCH (08:38)
[2022-12-04] MEDS: LEVOTHYROXINE SODIUM 100 MCG TABLET PO SCH (08:39)
[2022-12-04] MEDS: DULOXETINE HCL 30 MG CAPSULE.DR PO SCH (08:59)
[2022-12-04] MEDS: busPIRone 5 MG TABLET PO SCH ×3 (08:59→18:12)
[2022-12-04] MEDS: ASPIRIN 81 MG TAB.CHEW PO SCH (08:59)
[2022-12-04] MEDS: DOCUSATE SODIUM 100 MG CAPSULE PO SCH (09:00)
[2022-12-04] MEDS: CALCIUM POLYCARBOPHIL 625 MG TABLET PO SCH ×2 (09:00→18:15)
[2022-12-04] MEDS: CARVEDILOL 6.25 MG TABLET PO SCH (09:00)
[2022-12-04] MEDS: EZETIMIBE 10 MG TABLET PO SCH (09:01)
[2022-12-04] MEDS: ISOSORBIDE MONONITRATE (30MG) 30 MG TAB.SR.24H PO SCH (09:01)
[2022-12-04] MEDS: hydrALAZINE HCL 50 MG TABLET PO SCH ×3 (09:02→18:14)
[2022-12-04] MEDS: CYANOCOBALAMIN 500 MCG TABLET PO SCH (09:02)
[2022-12-04] MEDS: MEMANTINE HCL 5 MG TABLET PO SCH ×2 (09:05→18:12)
[2022-12-04] MEDS ORDERED: FUROSEMIDE 20 MG/2 ML VIAL IV STA (10:01)
[2022-12-04] MEDS ORDERED: HEPARIN SODIUM, PORCINE 5000 UNITS/1 ML VIAL IV ONE (12:30)
[2022-12-04] MEDS: HEPARIN INFUSION/D5W 500 ML IV PRN (14:21)
[2022-12-04] MEDS: CARVEDILOL 12.5 MG TABLET PO SCH (21:50)
[2022-12-04] MEDS: ROSUVASTATIN 20 MG PO SCH (21:51)
[2022-12-04] MEDS: GABAPENTIN 300 MG CAPSULE PO SCH (21:51)
[2022-12-04] MEDS: TERAZOSIN HCL 1 MG CAPSULE PO SCH (21:51)
[2022-12-04] MEDS: DONEPEZIL 5 MG TABLET PO SCH (21:52)
[2022-12-05] VITALS (21 sets, daily range): BP systolic 88–111; BP diastolic 52–80; TEMP 97.6–98.2; O2SAT 82–99
[2022-12-05] MEDS: ALBUTEROL FS 2.5 MG/0.5 ML VIAL.NEB NEB SCH ×3 (01:03→12:45)
[2022-12-05] MEDS: IPRATROPIUM NEB FS 0.5 MG/2.5 ML AMPUL.NEB NEB SCH ×3 (01:03→12:45)
[2022-12-05] MEDS: METOPROLOL TARTRATE INJ 5 MG/5 ML AMPUL IVP SCH ×3 (02:30→10:45)
[2022-12-05 03:00] LABS: BASOPHILS % (AUTO) 0.3 % (0.0-2.0); EOSINOPHILS # (AUTO) 0.1 K/uL (0.0-0.7); EOSINOPHILS % (AUTO) 1.1 % (0.0-6.0); HEMATOCRIT 25 % (33-45); LYMPHOCYTES # (AUTO) 0.9 K/uL (0.8-4.8); LYMPHOCYTES % (AUTO) 17.1 % (20.0-44.0); MEAN CORPUSCULAR HEMOGLOBIN 26 PG (26.0-33.0); MEAN CORPUSCULAR HGB CONC 32 g/dl (31.0-36.0); MEAN CORPUSCULAR VOLUME 82 fL (82-100); MONOCYTES # (AUTO) 0.4 K/uL (0.1-1.30); MONOCYTES % (AUTO) 8.3 % (2.0-12.0); NEUTROPHILS # (AUTO) 3.8 K/uL (1.8-8.9); NEUTROPHILS % (AUTO) 73.2 % (43.0-81.0); PLATELET COUNT (AUTO) 159 K/uL (150-450); RED CELL DISTRIBUTION WIDTH 20.3 % (11.5-15.0); WHITE BLOOD COUNT (AUTO) 5.2 K/uL (4.3-11.0)
[2022-12-05 03:09] LABS: CALCIUM, SERUM 9.2 mg/dL (8.5-10.1); CARBON DIOXIDE 22 mmol/L (21-32); CHLORIDE 106 mmol/L (98-107); CREATININE 2.1 mg/dL (0.6-1.3); GLUCOSE 125 mg/dL (74-106); POTASSIUM 3.8 mmol/L (3.5-5.1); SODIUM SERUM 137 mmol/L (136-145); UREA NITROGEN, BLOOD 36 mg/dL (7-18)
[2022-12-05] MEDS: HEPARIN INFUSION/D5W 500 ML IV PRN (04:31)
[2022-12-05 08:07] LABS: PTH, INTACT 171 pg/mL (15-65)
[2022-12-05] MEDS: PANTOPRAZOLE 40 MG TABLET.DR PO SCH (08:08)
[2022-12-05] MEDS: LEVOTHYROXINE SODIUM 100 MCG TABLET PO SCH (08:09)
[2022-12-05] MEDS: DOCUSATE SODIUM 100 MG CAPSULE PO SCH (09:40)
[2022-12-05] MEDS: CARVEDILOL 12.5 MG TABLET PO SCH (09:42)
[2022-12-05] MEDS: hydrALAZINE HCL 50 MG TABLET PO SCH ×2 (09:43→13:18)
[2022-12-05] MEDS: DULOXETINE HCL 30 MG CAPSULE.DR PO SCH (09:43)
[2022-12-05] MEDS: ISOSORBIDE MONONITRATE (30MG) 30 MG TAB.SR.24H PO SCH (09:44)
[2022-12-05] MEDS: EZETIMIBE 10 MG TABLET PO SCH (09:44)
[2022-12-05] MEDS: CALCIUM POLYCARBOPHIL 625 MG TABLET PO SCH (09:44)
[2022-12-05] MEDS: CYANOCOBALAMIN 500 MCG TABLET PO SCH (09:44)
[2022-12-05] MEDS: busPIRone 5 MG TABLET PO SCH ×2 (09:45→13:16)
[2022-12-05] MEDS: MEMANTINE HCL 5 MG TABLET PO SCH (09:45)
[2022-12-06 08:07] LABS: *SPE A/G RATIO 0.8 (0.7-1.7); *SPE ALBUMIN 2.9 g/dL (2.9-4.4); *SPE ALPHA-1-GLOBULIN 0.4 g/dL (0.0-0.4); *SPE ALPHA-2-GLOBULIN 1.4 g/dL (0.4-1.0); *SPE BETA GLOBULIN 0.9 g/dL (0.7-1.3); *SPE GLOBULIN, TOTAL 3.7 g/dL (2.2-3.9); *SPE M-SPIKE Not Observed g/dL (Not Observed); *SPE PROTEIN TOTAL 6.6 g/dL (6.0-8.5)
== END 2022-12-05 15:47 | DRG 69 ==
LOC: ER 23:58 → TELE 12-02 08:22 → ICU 12-03 09:27
PROVIDERS: ADMIT Internal Medicine; ATTEND Internal Medicine
PROC: 05HC33Z Insertion of Infusion Device into Left Basilic Vein, Percutaneous Approach (ICD-10-PCS; principal; 2022-12-03)
PROC: 05HA33Z Insertion of Infusion Device into Left Brachial Vein, Percutaneous Approach (ICD-10-PCS; 2022-12-04)
DX: G45.9 Transient cerebral ischemic attack, unspecified (principal); G92.9 Unspecified toxic encephalopathy; J96.01 Acute respiratory failure with hypoxia; I50.33 Acute on chronic diastolic (congestive) heart failure; I13.0 Hypertensive heart and chronic kidney disease with heart failure and stage 1 through stage 4 chronic kidney disease, or unspecified chronic kidney disease; N17.9 Acute kidney failure, unspecified; N18.4 Chronic kidney disease, stage 4 (severe); G93.49 Other encephalopathy; I25.10 Atherosclerotic heart disease of native coronary artery without angina pectoris; G62.9 Polyneuropathy, unspecified; I48.0 Paroxysmal atrial fibrillation; J44.9 Chronic obstructive pulmonary disease, unspecified; E78.5 Hyperlipidemia, unspecified; Z95.1 Presence of aortocoronary bypass graft; Z95.2 Presence of prosthetic heart valve; Z96.649 Presence of unspecified artificial hip joint; I69.320 Aphasia following cerebral infarction; Z88.0 Allergy status to penicillin; Z88.8 Allergy status to other drugs, medicaments and biological substances; Z79.51 Long term (current) use of inhaled steroids; Z79.899 Other long term (current) drug therapy; G47.33 Obstructive sleep apnea (adult) (pediatric); E03.9 Hypothyroidism, unspecified; T50.2X5A Adverse effect of carbonic-anhydrase inhibitors, benzothiadiazides and other diuretics, initial encounter; Y92.099 Unspecified place in other non-institutional residence as the place of occurrence of the external cause; Z95.828 Presence of other vascular implants and grafts; T42.6X5A Adverse effect of other antiepileptic and sedative-hypnotic drugs, initial encounter; R29.704 NIHSS score 4; I48.91 Unspecified atrial fibrillation; I67.1 Cerebral aneurysm, nonruptured; F03.90 Unspecified dementia, unspecified severity, without behavioral disturbance, psychotic disturbance, mood disturbance, and anxiety; Z87.891 Personal history of nicotine dependence; E66.9 Obesity, unspecified
CPT/HCPCS: 36410; 36415; 36600; 70450-TC; 70496-TC; 70498-TC; 70551-TC; 71045-TC; 80048-TC; 80053-TC; 80061-TC; 82550-TC; 82962-TC; 83735-TC; 83880; 83970; 84100-TC; 84155; 84165; 84443-TC; 84484-TC; 85025-TC; 85652-TC; 85730-TC; 87081-TC; 92507-TC; 92521; 92526; 92611-TC; 93307-TC; 94799-TC; 97112-TC; 97116-TC; 97530-TC; A4223; A4349; A6403; G0378; J1644; J1940; J3490; J7030; Q9967

== ENCOUNTER 2022-12-08 14:22 | Inpatient (IN) | payer MEDICARE, BC ==
[~2022-12-08] VITALS: Ht 167.6 cm; Wt 86.2 kg
[~2022-12-08 14:22] MED LIST changes: -CARV3.122 PO; +CINA30TA2 PO; -DOCU-141 PO; -HYDR-4077 PO; -KETO120S5 TP; +METO25TA3 PO; -OXYC5TAB3 PO; -POLY17PO4 PO; +ZALE5CAP2 PO; -ZOLP5TAB8 PO
[2022-12-08 14:31] VITALS: TEMP 98
[2022-12-08] MEDS ORDERED: IOHEXOL-350 100 ML VIAL IV ONE (14:38)
[2022-12-08] MEDS ORDERED: CT SWABBABLE VALVE TRANS SET 1 EA INFUS.SET MC ONE (14:38)
[2022-12-08] MEDS ORDERED: IV NS 0.9% 250 ML IV ONE (14:39)
[2022-12-08] MEDS ORDERED: APIX2.5T PO (14:47)
[2022-12-08 14:57] LABS: BASOPHILS # (AUTO) 0.1 K/uL (0.0-0.2); BASOPHILS % (AUTO) 0.8 % (0.0-2.0); EOSINOPHILS # (AUTO) 0.2 K/uL (0.0-0.7); EOSINOPHILS % (AUTO) 2.3 % (0.0-6.0); HEMATOCRIT 28 % (33-45); HEMOGLOBIN 8.8 g/dL (11.5-14.8); LYMPHOCYTES # (AUTO) 1.2 K/uL (0.8-4.8); LYMPHOCYTES % (AUTO) 17.9 % (20.0-44.0); MEAN CORPUSCULAR HEMOGLOBIN 26 PG (26.0-33.0); MEAN CORPUSCULAR HGB CONC 31 g/dl (31.0-36.0); MEAN CORPUSCULAR VOLUME 83 fL (82-100); MONOCYTES # (AUTO) 0.4 K/uL (0.1-1.30); MONOCYTES % (AUTO) 6.2 % (2.0-12.0); NEUTROPHILS % (AUTO) 72.8 % (43.0-81.0); PLATELET COUNT (AUTO) 237 K/uL (150-450); RED BLOOD CELL COUNT(AUTO) 3.41 MIL/uL (4.0-5.2); RED CELL DISTRIBUTION WIDTH 20.5 % (11.5-15.0); WHITE BLOOD COUNT (AUTO) 6.9 K/uL (4.3-11.0)
[2022-12-08] MEDS ORDERED: IV NS 0.9% 1,000 ML BAG IV ONE (15:00)
[2022-12-08 15:06] LABS: CALCIUM, SERUM 9.4 mg/dL (8.5-10.1); CARBON DIOXIDE 24 mmol/L (21-32); CHLORIDE 106 mmol/L (98-107); CREATININE 2.3 mg/dL (0.6-1.3); GLUCOSE 137 mg/dL (74-106); POTASSIUM 3.8 mmol/L (3.5-5.1); SODIUM SERUM 142 mmol/L (136-145); UREA NITROGEN, BLOOD 37 mg/dL (7-18)
[2022-12-08 15:11] LABS: INR 1.12 (0.91-1.10); PARTIAL THROMBOPLASTIN TIME 26.5 SEC (24.3-34.3); PROTHROMBIN TIME 11.7 SECS (9.2-11.1)
[2022-12-08 15:15] VITALS: BP 97/68; O2SAT 97
[2022-12-08 15:18] LABS: CHOLESTEROL 115 mg/dL (<200); HDL CHOLESTEROL 35 mg/dL (40-60); LDL 58 mg/dL (0-99); TRIGLYCERIDES 178 mg/dL (30-150)
[2022-12-08] MEDS ORDERED: LORAZEPAM INJ 2 MG/ML VIAL IV PRN (18:00)
[2022-12-08] MEDS ORDERED: ONDANSETRON HCL/PF 4 MG/2 ML VIAL IVP PRN (18:00)
[2022-12-08] MEDS ORDERED: ACETAMINOPHEN 325 MG TABLET PO PRN (18:00)
[2022-12-08] MEDS ORDERED: Z GUARD REMEDY 4 OZ OINT TP PRN (18:00)
[2022-12-09] MEDS ORDERED: PANTOPRAZOLE 40 MG TABLET.DR PO SCH (07:30)
== END 2022-12-08 21:25 | disposition left against medical advice (07) | DRG 69 ==
LOC: ER 14:27 → TELE 17:59
PROVIDERS: ADMIT Nurse Practitioner Family; ATTEND Nurse Practitioner Family
DX: G45.9 Transient cerebral ischemic attack, unspecified (principal); N17.0 Acute kidney failure with tubular necrosis; R47.81 Slurred speech; I48.91 Unspecified atrial fibrillation; Z79.01 Long term (current) use of anticoagulants; F03.90 Unspecified dementia, unspecified severity, without behavioral disturbance, psychotic disturbance, mood disturbance, and anxiety; I69.328 Other speech and language deficits following cerebral infarction; I12.9 Hypertensive chronic kidney disease with stage 1 through stage 4 chronic kidney disease, or unspecified chronic kidney disease; N18.9 Chronic kidney disease, unspecified; E03.9 Hypothyroidism, unspecified; E78.5 Hyperlipidemia, unspecified; Z95.2 Presence of prosthetic heart valve; I25.10 Atherosclerotic heart disease of native coronary artery without angina pectoris; Z96.649 Presence of unspecified artificial hip joint; Z98.61 Coronary angioplasty status; Z88.0 Allergy status to penicillin; Z79.51 Long term (current) use of inhaled steroids; Z88.8 Allergy status to other drugs, medicaments and biological substances; Z79.899 Other long term (current) drug therapy; I69.320 Aphasia following cerebral infarction; Z87.19 Personal history of other diseases of the digestive system; G47.33 Obstructive sleep apnea (adult) (pediatric); G62.9 Polyneuropathy, unspecified; I48.0 Paroxysmal atrial fibrillation; J44.9 Chronic obstructive pulmonary disease, unspecified; Z95.1 Presence of aortocoronary bypass graft; D64.9 Anemia, unspecified; R29.700 NIHSS score 0
CPT/HCPCS: 36415; 70450-TC; 70496-TC; 70498-TC; 70551-TC; 71045-TC; 80048-TC; 80061-TC; 82962-TC; 84484-TC; 85025-TC; 85730-TC; G0378; J7030; J7050; Q9967